=== PATIENT | female | born 1960 | race Caucasian/White ===

== ENCOUNTER → 2016-12-18 | Outpatient (CLI) | payer SELFPAY ==
--- NOTE | 2016-12-18 18:13 | WWHP ---
CHIEF COMPLAINT: The patient is here for her routine gynecologic exam and mammogram. HPI: This is a 56-year-old G3, P3 with an LMP of 2012. The patient is without gynecologic complaints. She was successful in weaning off of her ERT about 1 year ago. She does have occasional hot flashes, but they are very mild and infrequent. PAST MEDICAL HISTORY: Hypothyroidism and chronic hypertension. MEDICATIONS: 1. Synthroid 1 daily. 2. Hydrochlorothiazide 25 mg daily. 3. Metoprolol 50 mg daily. 4. Lsgi-yef-oxhycbj Zantac 1 daily. ALLERGIES: No known drug allergies. 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 SOCIAL HISTORY: She quit smoking as a teenager. She has about 2 to 3 alcoholic drinks per month and denies drug use. She has been since 1980 and watches her 2 grandchildren 1 day a week. REVIEW OF SYSTEMS: She has lost about 4 pounds over the last year. She denies respiratory, cardiac or GI problems; however, certain foods can cause heartburn. PHYSICAL EXAM: Blood pressure 155/80. Height 5 feet 3-3/4 inches. Weight 163 pounds. Temperature 98.7, pulse 80. This is a well-developed, well-nourished white female who is alert and oriented x3, in no acute distress. HEENT is within normal limits. NECK: Supple without mass or thyromegaly. CHEST AND LUNGS: Vascular rate and rhythm. Breasts are without mass or discharge. Axillary is negative for adenopathy. BACK: Negative for CVA tenderness. ABDOMEN: Soft, nontender, without palpable masses. PELVIC: External genitalia reveal mild atrophy without lesions. Vagina reveals minimal atrophy without lesions. There is no evidence of prolapse. Bimanual exam is negative for mass or tenderness. Rectovaginal exam is negative for mass or tenderness and is negative for occult blood. EXTREMITIES: Nontender. IMPRESSION: 1. A 56-year-old menopausal female, status post hysterectomy and bilateral salpingo-oophorectomy for benign reasons with normal gynecologic exam. 2. The patient has successfully weaned off of estrogen replacement therapy with minimal vasomotor symptoms. PLAN: 1. Pap smears have been discontinued. 2. Self-breast examination was discussed. 3. Mammogram will be done today. 4. Osteoporosis prevention was discussed. 5. We have discussed her elevated blood pressure. She will do home blood pressure checks and follow up with Dr. Joy if her blood pressures are elevated. 6. She will return in 1 year.
--- NOTE | 2016-12-19 11:39 | MM ---
Reason for exam: screening (asymptomatic). Last mammogram was performed 1 year and 3 months ago. History: Patient is postmenopausal. Family history of breast cancer in maternal aunt at age 79. Took hormonal contraceptives beginning at age 45. Taking unspecified hormones for 15 years beginning at age 30. Physical Findings: A clinical breast exam by your physician is recommended on an annual basis and results should be correlated with mammographic findings. MG Screening Mammo w CAD Bilateral CC and MLO view(s) were taken. Prior study comparison: September 12, 2015, bilateral MG screening mammo w CAD. August 12, 2014, bilateral MG screening mammo w CAD. There are scattered fibroglandular densities. Finding: There are typically benign round calcifications in both breasts. There is a chronic nodularity in the left breast. There is no discrete abnormality. ASSESSMENT: Benign, BI-RAD 2 RECOMMENDATION: Routine screening mammogram of both breasts in 1 year.
== END | disposition home or self-care (01) ==
LOC: WWCWWP 08:00
PROVIDERS: ATTEND Obstetrics & Gynecology
DX: Z12.31 Encounter for screening mammogram for malignant neoplasm of breast (principal)

== ENCOUNTER → 2016-12-24 | Outpatient (CLI) | payer SELFPAY ==
[2016-12-24 12:10] LABS: CH 29.7; CHCM 33.3; HCT 43.5 % (34.0-46.0); HDW 2.44; HGB 14.1 gm/dL (11.4-16.0); MCHC 32.4 g/dL (31.0-37.0); MCV 89.3 fL (80.0-100.0); Mean Platelet Volume 7.4; RBC 4.87 m/uL (3.80-5.40); WBC 9.5 k/uL (3.8-10.6)
[2016-12-24 12:24] LABS: Anion Gap 12 mmol/L; Blood Urea Nitrogen 19 mg/dL (7-17); Calcium 10.1 mg/dL (8.4-10.2); Carbon Dioxide 31 mmol/L (22-30); Chloride 98 mmol/L (98-107); Glucose 100 mg/dL (74-99); Non-African American GFR(MDRD) >60 (>60 ml/min/1.73 sqM); Potassium 3.8 mmol/L (3.5-5.1); Sodium 141 mmol/L (137-145)
== END | disposition home or self-care (01) ==
LOC: LABWHC1 11:12
PROVIDERS: ATTEND Internal Medicine Interventional Cardiology
DX: I10 Essential (primary) hypertension (principal)
CPT/HCPCS: 36415; 80048; 85027

== ENCOUNTER → 2017-01-03 | Outpatient (CLI) | payer SELFPAY ==
[2017-01-03 14:30] LABS: Anion Gap 12 mmol/L; Blood Urea Nitrogen 22 mg/dL (7-17); Calcium 9.9 mg/dL (8.4-10.2); Carbon Dioxide 27 mmol/L (22-30); Chloride 102 mmol/L (98-107); Glucose 112 mg/dL (74-99); Non-African American GFR(MDRD) >60 (>60 ml/min/1.73 sqM); Sodium 141 mmol/L (137-145)
== END | disposition home or self-care (01) ==
LOC: LABWHC1 14:02
PROVIDERS: ATTEND Internal Medicine Interventional Cardiology
DX: I10 Essential (primary) hypertension (principal)
CPT/HCPCS: 36415; 80048

== ENCOUNTER → 2018-01-07 | Outpatient (CLI) | payer BC ==
--- NOTE | 2018-01-07 11:03 | WWHP ---
[facility] - HISTORY AND PHYSICAL DATE OF DICTATION: 01/07/2018 CHIEF COMPLAINT: The patient is here for her routine gynecologic exam and mammogram. HPI: This is a 57-year-old G3, P3 with an LMP of 2009. The patient is without gynecologic complaints. PAST MEDICAL HISTORY: Hypothyroidism and chronic hypertension. MEDICATIONS: 1. Synthroid 50 mcg daily. 2. Simvastatin 1 daily. 3. Metoprolol 50 mg daily. 4. Amlodipine 1 daily. 5. Zantac mbre-cwr-iykkplj 1 daily p.r.n. 6. Tums p.r.n. ALLERGIES: To RETIN-A. PAST SURGICAL HISTORY: section x3, abdominoplasty 2000, endometrial ablation in 2011, robotic complete hysterectomy with BSO in 2012, colonoscopy in 2008. 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 SOCIAL HISTORY: She smoked briefly in high school, but has quit since then. She has approximately 3 alcohol-containing drinks per month and denies drug use. She has been since 1980 and watches her grandchildren 2 days a week. She also has slight involvement in her family's [employer] and [employer] business. FAMILY HISTORY: Mother had breast cancer at age 82. Father had a CVA and CA and diabetes. Brother had heart disease and 2 maternal aunts had breast cancer. REVIEW OF SYSTEMS: Weight has been stable. She denies respiratory or cardiac problems. GI occasional heartburn. PHYSICAL EXAM: Blood pressure 145/82, height 5 feet 3 inches, weight 165 pounds, BMI 29. Temperature 99.0, pulse 69. This is a well-developed, well-nourished, white female, who is alert and oriented x3, in no acute distress. HEENT is within normal limits. NECK: Supple without mass or thyromegaly. CHEST AND LUNGS: Clear to auscultation. HEART: Regular rate and rhythm. Breasts are without mass or discharge. Axillary exam is negative for adenopathy. Back negative for CVA tenderness. ABDOMEN: Soft, nontender, without palpable masses. PELVIC EXAM: External genitalia reveals mild atrophy without lesions. Vagina reveals mild atrophy without lesions. There is no evidence of prolapse. Bimanual exam is negative for mass or tenderness. Rectovaginal exam is negative for mass or tenderness and is negative for occult blood. EXTREMITIES: Nontender. IMPRESSION: A 57-year-old menopausal female, status post hysterectomy and bilateral salpingo- oophorectomy for benign reasons with normal gynecologic exam. PLAN: 1. Pap smears have been discontinued. 2. Self breast examination was discussed. 3. Screening mammogram will be done today. 4. Osteoporosis prevention was discussed. She has had one bone density test in the past, which was normal per the patient. We will plan on redoing this at age 60. 5. She will return in 1 year. MMODL / IJN: [id number] /
--- NOTE | 2018-01-08 09:09 | MM ---
Reason for exam: screening (asymptomatic). Last mammogram was performed 1 year and 1 month ago. History: Patient is postmenopausal. Family history of breast cancer in maternal aunt at age 79. Took hormonal contraceptives beginning at age 45. Taking unspecified hormones for 15 years beginning at age 30. Physical Findings: A clinical breast exam by your physician is recommended on an annual basis and results should be correlated with mammographic findings. MG Screening Mammo w CAD Bilateral CC and MLO view(s) were taken. Prior study comparison: December 18, 2016, bilateral MG screening mammo w CAD. September 12, 2015, bilateral MG screening mammo w CAD. There are scattered fibroglandular densities. Stable benign calcifications. There is no discrete abnormality. No significant changes when compared with prior studies. ASSESSMENT: Benign, BI-RAD 2 RECOMMENDATION: Routine screening mammogram of both breasts in 1 year.
== END | disposition home or self-care (01) ==
LOC: WWCWWP 09:20
PROVIDERS: ATTEND Obstetrics & Gynecology
DX: Z12.31 Encounter for screening mammogram for malignant neoplasm of breast (principal)
CPT/HCPCS: 77067

== ENCOUNTER → 2019-01-13 | Outpatient (CLI) | payer BC ==
[2019-01-13 11:01] VITALS: BP 150/84; PULSE 67; RESP 18; TEMP 96.2; BMI 27.9
--- NOTE | 2019-01-13 12:08 | P.HPOB ---
History of Present Illness H&P Date: 01/13/19 Chief Complaint: The patient is here for her routine gynecologic exam and mammogram. This is a 58-year-old G3 PIII with an LMP of 2013. The patient states she continues to have hot flashes during the day and night, but they seem to be gradually improving since her surgical menopause. She typically will have 2 or 3 hot flashes at night and one or 2 during the day. She states she sometimes feels like Herb blood pressure is rising when she has a hot flashes and she wonders if this can be a problem. She does experience some vaginal dryness with sexual activity. Review of Systems The patient has lost 2 pounds over the last year. She denies respiratory or cardiac problems. G.I.: occasional heartburn. Past Medical History Past Medical History: Hyperlipidemia, Hypertension, Thyroid Disorder Additional Past Medical History / Comment(s): Hypothyroid. PAST INSURANCE UNDERWRITER SALES HISTORY: She has no history of STDs. T LH and BSO were done for benign bleeding. History of Any Multi-Drug Resistant Organisms: None Reported Past Surgical History: Section (x3), Hysterectomy, Uterine Ablation Additional Past Surgical History / Comment(s): [facility] BSO in 2012. Abdominoplasty 2000. Colonoscopy 2008. Past Psychological History: Panic Disorder Smoking Status: Former smoker Past Alcohol Use History: Occasional (0 to 1 per month) Past Drug Use History: None Reported Additional History: Briefly smoked as a teen. She has been since 1980. 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 - Past Family History Mother Family Medical History: Cancer Additional Family Medical History / Comment(s): Breast cancer in her 80s. The maternal aunt had breast cancer in her 70s. Father Family Medical History: CVA/TIA, Myocardial Infarction ([place]) Brother(s) Additional Family Medical History / Comment(s): Heart disease. Medications and Allergies Home Medications Medication Instructions Recorded Confirmed Type Cyanocobalamin (Vitamin B-12) 1,000 mcg PO DAILY 01/13/19 01/13/19 History [Vitamin B-12] Levothyroxine Sodium [Synthroid] 75 mcg PO DAILY 01/13/19 01/13/19 History Metoprolol Succinate [Toprol Xl] 50 mg PO DAILY 01/13/19 01/13/19 History Multivit with Calcium,Iron,Min 1 each PO DAILY 01/13/19 01/13/19 History [Women's Multivitamin] amLODIPine BESYLATE 5 mg PO DAILY 01/13/19 01/13/19 History Allergies Allergy/AdvReac Type Severity Reaction Status Date / Time nitroglycerin AdvReac Unknown Verified 01/13/19 10:52 Exam Vital Signs Temp Pulse Resp BP Pulse Ox 01/13/19 10:57 96.2 F L 67 18 150/84 97 Intake and Output 01/12/19 01/13/19 01/13/19 22:59 06:59 14:59 Other: Weight 73.936 kg Height 5'4", weight 163 pounds, BMI 28.0. This is a well-developed well-nourished white female who is alert and oriented times 3 in no acute distress. HEENT: Within normal limits. NECK: Supple without mass or thyromegaly. CHEST AND LUNGS: Clear to auscultation. HEART: Regular rate and rhythm. BREASTS: Are without mass or discharge. AXILLARY EXAM: Negative for adenopathy. BACK: Negative for CVA tenderness. ABDOMEN: Soft, nontender, without palpable masses. PELVIC EXAM: External genitalia appears normal with mild atrophy. Vagina appears normal with mild atrophy. There is no evidence of prolapse. Bimanual examination is negative for mass or tenderness. RECTAL EXAM: refused by the patient. EXTREMITIES: Nontender. IMPRESSION: 1. 58-year-old menopausal female status post hysterectomy and bilateral salpingo-oophorectomy for benign reasons with normal gynecologic exam. 2. Menopausal symptoms including vasomotor symptoms, which are improving, and vaginal dryness. 3. Family history of breast cancer in her mother and maternal aunt. PLAN: 1. Pap smears have been discontinued. 2. Self breast awareness was discussed with the patient. 3. Screening mammogram will be done today. 4. Osteoporosis prevention was discussed. I have stressed the importance of adequate calcium, vitamin D and regular exercise. Recommended amounts of calcium and vitamin D were also discussed. 5. I have recommended screening colonoscopy since it is been about 10 years since her last one. She will talk to Dr. Joy about arranging this. 6. We have had a long discussion regarding her menopausal symptoms. Her vasomotor symptoms seem to be improving and are not very severe. Her vaginal dryness probably secondary to gradual genital atrophy related to the menopause. She is interested in having a trial of estrogen vaginal cream. The electronic prescription for Premarin vaginal cream, 1 g intravaginally twice- weekly, will be sent to [facility] pharmacy. 7. I have also recommended that she check her blood pressures at home and also to check them during hot flashes. She will follow-up with Dr. Joy for blood pressure elevations. 8. She was advised to return in one year for her annual well woman exam.
--- NOTE | 2019-01-15 09:11 | MM ---
Reason for exam: screening (asymptomatic). Last mammogram was performed 1 year ago. History: Patient is postmenopausal. Family history of breast cancer in maternal aunt at age 79 and breast cancer in mother at age 80. Took hormonal contraceptives beginning at age 45. Took unspecified hormones for 15 years beginning at age 30. Physical Findings: A clinical breast exam by your physician is recommended on an annual basis and results should be correlated with mammographic findings. MG Screening Mammo w CAD Bilateral CC and MLO view(s) were taken. Prior study comparison: January 07, 2018, bilateral MG screening mammo w CAD. December 18, 2016, bilateral MG screening mammo w CAD. There are scattered fibroglandular densities. No significant changes when compared with prior studies. ASSESSMENT: Negative, BI-RAD 1 RECOMMENDATION: Routine screening mammogram of both breasts in 1 year.
== END ==
LOC: WWCWWP 10:41
PROVIDERS: ATTEND Obstetrics & Gynecology
DX: Z12.31 Encounter for screening mammogram for malignant neoplasm of breast (principal)
CPT/HCPCS: 77067

== ENCOUNTER → 2019-01-13 | Outpatient (CLI) | payer BC ==
[2019-01-13 19:30] LABS: T4, Free (Free Thyroxine) 1.3 ng/dL (0.80-1.80)
== END | disposition home or self-care (01) ==
LOC: LABWHC1 12:09
PROVIDERS: ATTEND Internal Medicine Endocrinology, Diabetes & Metabolism
DX: E03.9 Hypothyroidism, unspecified (principal)
CPT/HCPCS: 36415; 84439; 84443

== ENCOUNTER 2019-04-25 14:54 | Emergency (ER) | payer BC ==
[2019-04-25 15:06] VITALS: RESP 18
[2019-04-25] MEDS ORDERED: SODIUM CHLORIDE 0.9% 1,000 ML IV ONE (15:32)
[2019-04-25] MEDS ORDERED: diphenhydrAMINE 50 MG/ML 1 ML VIAL IVP STA (15:33)
[2019-04-25] MEDS ORDERED: MECLIZINE 12.5 MG TAB PO STA (15:33)
[2019-04-25] MEDS ORDERED: METOCLOPRAMIDE 5 MG/ML 2 ML VIAL IVP STA (15:33)
--- NOTE | 2019-04-25 15:37 | ED ---
Dizziness HPI - General Chief Complaint: Dizziness Stated Complaint: Dizziness/head pressure Time Seen by Provider: 04/25/19 15:08 Source: patient, RN notes reviewed, old records reviewed Mode of arrival: ambulatory Limitations: no limitations - History of Present Illness Initial Comments: Patient is a 58-year-old female who presents emergency department today for evaluation for dizziness and nausea, and complaining of right ear fullness and pain. Patient reports symptoms started suddenly this afternoon. Patient states that she did have an episode of ear fullness. Ago but that diminished. Patient states that she's had history of vertigo in the past. She denies any significant sinus pressure or drainage as this time. Patient states that she does have ringing within her right ear. Patient relates that she's had no recent fevers or chills. Denies any headache head or neck pain. Denies any associated chest pain. - Related Data Home Medications Medication Instructions Recorded Confirmed amLODIPine BESYLATE 5 mg PO HS 01/13/19 04/25/19 Levothyroxine Sodium [Synthroid] 50 mcg PO DAILY 04/25/19 04/25/19 Metoprolol Tartrate [Lopressor] 50 mg PO DAILY 04/25/19 04/25/19 Previous Rx's Medication Instructions Recorded Azithromycin [Zithromax Z-pack] 0 mg PO DIRECTED #6 tab 04/25/19 Meclizine [Antivert] 25 mg PO TID #20 tab 04/25/19 Ondansetron Odt [Zofran Odt] 4 mg PO Q8HR PRN #12 tab 04/25/19 methylPREDNISolone Dose Pack 4 mg PO DIRECTED #21 package 04/25/19 [Medrol Dose Pack] Allergies Allergy/AdvReac Type Severity Reaction Status Date / Time nitroglycerin AdvReac Unknown Verified 04/25/19 16:56 Review of Systems ROS Statement: Those systems with pertinent positive or pertinent negative responses have been documented in the HPI. ROS Other: All systems not noted in ROS Statement are negative. Past Medical History Past Medical History: Hyperlipidemia, Hypertension, Thyroid Disorder Additional Past Medical History / Comment(s): Hypothyroid History of Any Multi-Drug Resistant Organisms: None Reported Past Surgical History: Section, Hysterectomy, Uterine Ablation Additional Past Surgical History / Comment(s): [facility] BSO in 2012. Abdominoplasty 2000. Colonoscopy 2008. Past Psychological History: Panic Disorder Smoking Status: Former smoker Past Alcohol Use History: Occasional Past Drug Use History: None Reported - Past Family History Mother Family Medical History: Cancer Additional Family Medical History / Comment(s): Breast cancer in her 80s. The maternal aunt had breast cancer in her 70s. Father Family Medical History: CVA/TIA, Myocardial Infarction ([place]) Brother(s) Additional Family Medical History / Comment(s): Heart disease. General Exam - General Exam Comments Initial Comments: This is a 50-year-old female. Alert and oriented. No distress. Limitations: no limitations General appearance: alert, in no apparent distress Head exam: Present: atraumatic, normocephalic, normal inspection Eye exam: Present: normal appearance, PERRL, EOMI. Absent: scleral icterus, conjunctival injection, periorbital swelling ENT exam: Present: normal exam, mucous membranes moist. Absent: TM's normal bilaterally (Effusion of her right TM.) Neck exam: Present: normal inspection. Absent: tenderness, meningismus, lymp hadenopathy Respiratory exam: Present: normal lung sounds bilaterally. Absent: respiratory distress, wheezes, rales, rhonchi, stridor Cardiovascular Exam: Present: regular rate, normal rhythm, normal heart sounds. Absent: systolic murmur, diastolic murmur, rubs, gallop, clicks GI/Abdominal exam: Present: soft, normal bowel sounds. Absent: distended, tenderness, guarding, rebound, rigid Extremities exam: Present: normal inspection, full ROM, normal capillary refill. Absent: tenderness, pedal edema, joint swelling, calf tenderness Back exam: Present: normal inspection Neurological exam: Present: alert, oriented X3, CN II-XII intact Psychiatric exam: Present: normal affect, normal mood Skin exam: Present: warm, dry, intact, normal color. Absent: rash Course Vital Signs 04/25/19 15:02 Temperature 98.5 F Pulse Rate 92 Respiratory 18 Rate Blood Pressure 163/85 O2 Sat by Pulse 100 Oximetry Medical Decision Making - Medical Decision Making 50-year-old female presents for his fiance with vertigo like dizziness. Complaining of right ear fullness and pain. Shows colitis denies. Discussed concern for Mnire's disease. Discussed doing a low salt diet. Patient does feel better after receiving meclizine, Reglan and Benadryl. She does have evidence of a right TM effusion. Discussed with the Patient on Medrol Dosepak, and invert and nausea medication. Discussed close follow-up with PCP. - Lab Data Result diagrams: 04/25/19 15:43 04/25/19 15:43 Lab Results 04/25/19 04/25/19 Range/Units 15:43 15:43 WBC 8.9 (3.8-10.6) k/uL RBC 4.78 (3.80-5.40) m/uL Hgb 14.0 (11.4-16.0) gm/dL Hct 42.0 (34.0-46.0) % MCV 87.9 (80.0-100.0) fL MCH 29.3 (25.0-35.0) pg MCHC 33.3 (31.0-37.0) g/dL RDW 12.6 (11.5-15.5) % Plt Count 327 (150-450) k/uL Neutrophils % 53 % Lymphocytes % 35 % Monocytes % 6 % Eosinophils % 3 % Basophils % 1 % Neutrophils # 4.7 (1.3-7.7) k/uL Lymphocytes # 3.1 (1.0-4.8) k/uL Monocytes # 0.5 (0-1.0) k/uL Eosinophils # 0.3 (0-0.7) k/uL Basophils # 0.1 (0-0.2) k/uL Sodium 141 (137-145) mmol/L Potassium 5.2 H (3.5-5.1) mmol/L Chloride 111 H (98-107) mmol/L Carbon Dioxide 22 (22-30) mmol/L Anion Gap 8 mmol/L BUN 14 (7-17) mg/dL Creatinine 0.78 (0.52-1.04) mg/dL Est GFR (CKD-EPI)AfAm >90 (>60 ml/min/1.73 sqM) Est GFR (CKD-EPI)NonAf 84 (>60 ml/min/1.73 sqM) Glucose 150 H (74-99) mg/dL Calcium 9.5 (8.4-10.2) mg/dL Disposition Clinical Impression: Acute effusion of right ear, Tinnitus, right, Vertigo Disposition: HOME SELF-CARE Condition: Good Instructions (If sedation given, give patient instructions): Vertigo (ED) Additional Instructions: Patient advised that close follow-up with primary care doctor. Take the medications as prescribed. Return to the emergency department if any alarming signs or symptoms occur. Discussed that if the repeat seizures. Persist or worsen despite taking any other medications she may start the antibiotic within the next 3 days. Prescriptions: Meclizine [Antivert] 25 mg PO TID #20 tab methylPREDNISolone Dose Pack [Medrol Dose Pack] 4 mg PO DIRECTED #21 package Azithromycin [Zithromax Z-pack] 0 mg PO DIRECTED #6 tab Ondansetron Odt [Zofran Odt] 4 mg PO Q8HR PRN #12 tab PRN Reason: Nausea Is patient prescribed a controlled substance at d/c from ED?: No Referrals: Doris Jyo III, MD [Primary Care Provider] - 1-2 days Alan Bonilla MD [STAFF PHYSICIAN] - 1-2 days Time of Disposition: 17:12
[2019-04-25] MEDS ORDERED: SODIUM CHLORIDE 0.9% 1,000 ML IV SCH (15:45)
[2019-04-25 15:54] LABS: MCH 29.3 pg (25.0-35.0); MCHC 33.3 g/dL (31.0-37.0); MCV 87.9 fL (80.0-100.0); Neutrophils % (A) 53 %; Platelet Count 327 k/uL (150-450); RBC 4.78 m/uL (3.80-5.40); RDW 12.6 % (11.5-15.5); WBC 8.9 k/uL (3.8-10.6)
[2019-04-25 15:55] LABS: Basophils # (A) 0.1 k/uL (0-0.2); Basophils % (A) 1 %; Eosinophils # (A) 0.3 k/uL (0-0.7); Eosinophils % (A) 3 %; Lymphocytes # (A) 3.1 k/uL (1.0-4.8); Lymphocytes % (A) 35 %; Monocytes # (A) 0.5 k/uL (0-1.0); Monocytes % (A) 6 %; Neutrophils # (A) 4.7 k/uL (1.3-7.7)
[2019-04-25 16:07] LABS: African American GFR (CKD) >90 (>60 ml/min/1.73 sqM); Anion Gap 8 mmol/L; Blood Urea Nitrogen 14 mg/dL (7-17); Calcium 9.5 mg/dL (8.4-10.2); Carbon Dioxide 22 mmol/L (22-30); Chloride 111 mmol/L (98-107); Glucose 150 mg/dL (74-99); Sodium 141 mmol/L (137-145)
[2019-04-25 16:16] LABS: Potassium 5.2 mmol/L (3.5-5.1)
[2019-04-25 17:36] VITALS: BP 133/75; PULSE 72; TEMP 98.3
== END 2019-04-25 17:35 | disposition home or self-care (01) ==
LOC: EC 14:54
DX: H93.11 Tinnitus, right ear (principal); H93.8X1 Other specified disorders of right ear; R42 Dizziness and giddiness; I10 Essential (primary) hypertension; E03.9 Hypothyroidism, unspecified; Z87.891 Personal history of nicotine dependence; Z79.890 Hormone replacement therapy; Z79.899 Other long term (current) drug therapy; Z88.8 Allergy status to other drugs, medicaments and biological substances
CPT/HCPCS: 36415; 80048; 85025; 99284; 96374; 96375; 96361 ×2; J1200; J2765

== ENCOUNTER 2019-08-13 23:28 | Emergency (ER) | payer BC ==
[2019-08-13 23:41] VITALS: TEMP 97.8
--- NOTE | 2019-08-13 23:50 | ED ---
Arrhythmia/Palpitations HPI - General Chief Complaint: Arrhythmia/Palpitations Stated Complaint: Palpitations Time Seen by Provider: 08/13/19 23:50 Source: patient Mode of arrival: wheelchair Limitations: no limitations - History of Present Illness Initial Comments: Brooke is a pleasant 58-year-old female with history of hypertension no other cardiac history who presents the emergency department today for evaluation of palpitations. Patient reports that she was resting at home when she noted that her heart seemed to be racing. At the evening it seemed to be getting worse which prompted her to come to ER for evaluation. Patient does note that she was seen by her primary care physician today for routine checkup and was noted to have higher blood pressure than usual and was told she could take one extra amlodipine. Patient does admit some anxiety about having higher blood pressure. She denies any other anxieties. She denies any chest pain or shortness of breath with these palpitations. She reports the palpitations seem to get better when she sitting down resting and worse when she is up moving around. Patient denies any excessive caffeine intake she reports she drinks maybe 2 cups of coffee every morning this is unchanged recently she denies any energy drinks or diet supplements or caffeine pills. Patient denies any history of clotting disorders DVT or PE. She denies any risk factors for DVT or PE including smoking travel or immobilization. She denies any recent illness fevers chills nausea or vomiting. - Related Data Home Medications Medication Instructions Recorded Confirmed amLODIPine BESYLATE 5 mg PO HS 01/13/19 04/25/19 Levothyroxine Sodium [Synthroid] 50 mcg PO DAILY 04/25/19 04/25/19 Metoprolol Tartrate [Lopressor] 50 mg PO DAILY 04/25/19 04/25/19 Previous Rx's Medication Instructions Recorded Azithromycin [Zithromax Z-pack] 0 mg PO DIRECTED #6 tab 04/25/19 Meclizine [Antivert] 25 mg PO TID #20 tab 04/25/19 Ondansetron Odt [Zofran Odt] 4 mg PO Q8HR PRN #12 tab 04/25/19 methylPREDNISolone Dose Pack 4 mg PO DIRECTED #21 package 04/25/19 [Medrol Dose Pack] Allergies Allergy/AdvReac Type Severity Reaction Status Date / Time nitroglycerin AdvReac Unknown Verified 08/13/19 23:41 Review of Systems ROS Statement: Those systems with pertinent positive or pertinent negative responses have been documented in the HPI. ROS Other: All systems not noted in ROS Statement are negative. Past Medical History Past Medical History: Hyperlipidemia, Hypertension, Thyroid Disorder Additional Past Medical History / Comment(s): Hypothyroid History of Any Multi-Drug Resistant Organisms: None Reported Past Surgical History: Section, Hysterectomy, Uterine Ablation Additional Past Surgical History / Comment(s): TLH BSO in 2012. Abdominoplasty 2000. Colonoscopy 2008. Past Psychological History: Panic Disorder Smoking Status: Former smoker Past Alcohol Use History: Occasional Past Drug Use History: None Reported - Past Family History Mother Family Medical History: Cancer Additional Family Medical History / Comment(s): Breast cancer in her 80s. The maternal aunt had breast cancer in her 70s. Father Family Medical History: CVA/TIA, Myocardial Infarction ([place]) Brother(s) Additional Family Medical History / Comment(s): Heart disease. General Exam - General Exam Comments Initial Comments: Physical Exam GENERAL: Patient is well-developed and well-nourished. Patient is nontoxic and well- hydrated and is in no distress. HENT: Normocephalic, Atraumatic. EYES: PERRL, EOMI PULMONARY: Unlabored respirations. No audible rales rhonchi or wheezing was noted. CARDIOVASCULAR: There is a regular rate and rhythm without any murmurs gallops or rubs. ABDOMEN: Soft and nontender with normal bowel sounds. SKIN: Skin is clear with no lesions or rashes and otherwise unremarkable. : Deferred NEUROLOGIC: Patient is alert and oriented x3. Moving all extremities spontaneously MUSCULOSKELETAL: Normal extremities with adequate strength and full range of motion. No lower extremity swelling or edema. No calf tenderness. PSYCHIATRIC: Normal psychiatric evaluation. Limitations: no limitations Course Vital Signs 08/13/19 08/13/19 08/14/19 23:39 23:53 01:19 Temperature 97.8 F Pulse Rate 131 H 115 H 99 Respiratory 18 22 15 Rate Blood Pressure 178/81 168/85 144/79 O2 Sat by Pulse 100 100 98 Oximetry 08/14/19 02:36 Temperature Pulse Rate 88 Respiratory 16 Rate Blood Pressure 152/81 O2 Sat by Pulse 98 Oximetry EKG Findings - EKG Comments: EKG Findings:: EKG was obtained due to complaint of palpitations. EKG was obtained at 2343, rate is 106 rhythm sinus tachycardia there is normal axis, normal intervals, DE 174, curious 82, QTc is 454 there is no acute ST elevations or depressions or evidence of acute ischemia or infarction. Medical Decision Making - Medical Decision Making The patient was seen and evaluated history is obtained from the patient History and physical exam are relatively unremarkable cardiac workup was initiated patient remained chest pain-free. She received IV fluids and a single dose of Lopressor. Her tachycardia and symptoms resolved Labs were unremarkable results were discussed with the patient who is much more comfortable now and is comfortable with plan for discharge home and outpatient follow-up. All questions pertaining care were answered return parameters were discussed patient was discharged home in stable condition. - Lab Data Result diagrams: 08/13/19 23:55 08/13/19 23:55 Lab Results 08/13/19 08/13/19 08/13/19 Range/Units 23:55 23:55 23:55 WBC 11.3 H (3.8-10.6) k/uL RBC 4.57 (3.80-5.40) m/uL Hgb 13.9 (11.4-16.0) gm/dL Hct 40.2 (34.0-46.0) % MCV 88.1 (80.0-100.0) fL MCH 30.5 (25.0-35.0) pg MCHC 34.6 (31.0-37.0) g/dL RDW 12.1 (11.5-15.5) % Plt Count 360 (150-450) k/uL Neutrophils % 54 % Lymphocytes % 33 % Monocytes % 7 % Eosinophils % 3 % Basophils % 1 % Neutrophils # 6.1 (1.3-7.7) k/uL Lymphocytes # 3.7 (1.0-4.8) k/uL Monocytes # 0.8 (0-1.0) k/uL Eosinophils # 0.3 (0-0.7) k/uL Basophils # 0.1 (0-0.2) k/uL PT 10.1 (9.0-12.0) sec INR 0.9 (<1.2) APTT 25.1 (22.0-30.0) sec D-Dimer (<0.60) mg/L FEU Sodium 141 (137-145) mmol/L Potassium 3.4 L (3.5-5.1) mmol/L Chloride 104 (98-107) mmol/L Carbon Dioxide 25 (22-30) mmol/L Anion Gap 12 mmol/L BUN 15 (7-17) mg/dL Creatinine 0.89 (0.52-1.04) mg/dL Est GFR (CKD-EPI)AfAm 83 (>60 ml/min/1.73 sqM) Est GFR (CKD-EPI)NonAf 72 (>60 ml/min/1.73 sqM) Glucose 196 H (74-99) mg/dL Calcium 10.0 (8.4-10.2) mg/dL Magnesium 2.1 (1.6-2.3) mg/dL Total Bilirubin 0.4 (0.2-1.3) mg/dL AST 25 (14-36) U/L ALT 24 (9-52) U/L Alkaline Phosphatase 101 (38-126) U/L Troponin I (0.000-0.034) ng/mL Total Protein 7.9 (6.3-8.2) g/dL Albumin 4.5 (3.5-5.0) g/dL TSH 2.000 (0.465-4.680) mIU/L 08/13/19 08/13/19 Range/Units 23:55 23:55 WBC (3.8-10.6) k/uL RBC (3.80-5.40) m/uL Hgb (11.4-16.0) gm/dL Hct (34.0-46.0) % MCV (80.0-100.0) fL MCH (25.0-35.0) pg MCHC (31.0-37.0) g/dL RDW (11.5-15.5) % Plt Count (150-450) k/uL Neutrophils % % Lymphocytes % % Monocytes % % Eosinophils % % Basophils % % Neutrophils # (1.3-7.7) k/uL Lymphocytes # (1.0-4.8) k/uL Monocytes # (0-1.0) k/uL Eosinophils # (0-0.7) k/uL Basophils # (0-0.2) k/uL PT (9.0-12.0) sec INR (<1.2) APTT (22.0-30.0) sec D-Dimer 0.25 (<0.60) mg/L FEU Sodium (137-145) mmol/L Potassium (3.5-5.1) mmol/L Chloride (98-107) mmol/L Carbon Dioxide (22-30) mmol/L Anion Gap mmol/L BUN (7-17) mg/dL Creatinine (0.52-1.04) mg/dL Est GFR (CKD-EPI)AfAm (>60 ml/min/1.73 sqM) Est GFR (CKD-EPI)NonAf (>60 ml/min/1.73 sqM) Glucose (74-99) mg/dL Calcium (8.4-10.2) mg/dL Magnesium (1.6-2.3) mg/dL Total Bilirubin (0.2-1.3) mg/dL AST (14-36) U/L ALT (9-52) U/L Alkaline Phosphatase (38-126) U/L Troponin I <0.012 (0.000-0.034) ng/mL Total Protein (6.3-8.2) g/dL Albumin (3.5-5.0) g/dL TSH (0.465-4.680) mIU/L Disposition Clinical Impression: Palpitations Disposition: HOME SELF-CARE Condition: Stable Instructions (If sedation given, give patient instructions): Heart Palpitations (ED) Is patient prescribed a controlled substance at d/c from ED?: No Referrals: Doris Joy III, MD [Primary Care Provider] - 1-2 days
--- NOTE | 2019-08-14 00:11 | XR ---
EXAMINATION TYPE: XR chest 2V DATE OF EXAM: 08/14/2019 COMPARISON: 06/19/2014 HISTORY: Irregular heart rate TECHNIQUE: Frontal and lateral views of the chest are obtained. FINDINGS: Heart and mediastinum are normal. Lungs are clear. Diaphragm is normal. Bony thorax appear s normal. IMPRESSION: Normal chest. No change.
[2019-08-14 00:34] LABS: Basophils # (A) 0.1 k/uL (0-0.2); Basophils % (A) 1 %; Eosinophils # (A) 0.3 k/uL (0-0.7); Eosinophils % (A) 3 %; HCT 40.2 % (34.0-46.0); HGB 13.9 gm/dL (11.4-16.0); Lymphocytes # (A) 3.7 k/uL (1.0-4.8); Lymphocytes % (A) 33 %; MCH 30.5 pg (25.0-35.0); MCHC 34.6 g/dL (31.0-37.0); MCV 88.1 fL (80.0-100.0); Mean Platelet Volume 6.6; Monocytes # (A) 0.8 k/uL (0-1.0); Monocytes % (A) 7 %; Neutrophils # (A) 6.1 k/uL (1.3-7.7); Neutrophils % (A) 54 %; Platelet Count 360 k/uL (150-450); RBC 4.57 m/uL (3.80-5.40); RDW 12.1 % (11.5-15.5); WBC 11.3 k/uL (3.8-10.6)
[2019-08-14 00:47] LABS: INR 0.9 (<1.2); Partial Thromboplastin Time 25.1 sec (22.0-30.0); Prothrombin Time 10.1 sec (9.0-12.0)
[2019-08-14 01:00] LABS: Albumin 4.5 g/dL (3.5-5.0); Magnesium 2.1 mg/dL (1.6-2.3); Potassium 3.4 mmol/L (3.5-5.1); Total Bilirubin 0.4 mg/dL (0.2-1.3); Total Protein 7.9 g/dL (6.3-8.2)
[2019-08-14] MEDS ORDERED: SODIUM CHLORIDE 0.9% 1,000 ML IV ONE (01:21)
[2019-08-14] MEDS ORDERED: METOPROLOL TARTRATE 50 MG TAB PO STA (01:21)
[2019-08-14 02:37] VITALS: BP 152/81; PULSE 88; RESP 16
== END 2019-08-14 03:19 | disposition home or self-care (01) ==
LOC: EC 23:28
DX: R00.2 Palpitations (principal); I10 Essential (primary) hypertension; E03.9 Hypothyroidism, unspecified; E78.5 Hyperlipidemia, unspecified; F41.9 Anxiety disorder, unspecified; Z87.891 Personal history of nicotine dependence; Z88.8 Allergy status to other drugs, medicaments and biological substances; Z82.49 Family history of ischemic heart disease and other diseases of the circulatory system
CPT/HCPCS: 36415; 71046; 80053; 83735; 84443; 84484; 85025; 85379; 85610; 85730; 93005; 96360; 99285

== ENCOUNTER → 2019-08-23 | Outpatient (CLI) | payer BC ==
--- NOTE | 2019-08-23 08:35 | US ---
EXAMINATION TYPE: US abdomen complete DATE OF EXAM: 08/23/2019 COMPARISON: Ultrasound dated 12/24/2011 CLINICAL HISTORY: R10.11 RUQ Abd Pain. RUQ pain. Burping. NPO. EXAM MEASUREMENTS: Liver Length: 16.6 cm Gallbladder Wall: 0.2 cm CBD: 0.5 cm Spleen: 10.0 cm Right Kidney: 9.8 x 5.0 x 3.3 cm Left Kidney: 9.7 x 4.2 x 5.1 cm Pancreas: Suboptimal visualization due to overlying bowel gas. Tail not visualized. Liver: wnl Gallbladder: wnl Evidence for sonographic Moncada's sign: neg CBD: wnl Spleen: wnl Right Kidney: wnl Left Kidney: wnl Upper IVC: wnl Abd Aorta: Mid portion obscured by overlying bowel gas The liver is homogenous. The intrahepatic portion of the IVC and proximal abdominal aorta are within normal limits. There is no evidence of cholelithiasis. Common bile duct is unremarkable. The visu alized portions of the pancreas are homogenous. The spleen is unremarkable. Kidneys are symmetric a nd free of hydronephrosis. No renal lesions are seen. IMPRESSION: No sonographic evidence of cholelithiasis nor acute cholecystitis. Given the patient's sy mptoms HIDA scan with CCK could evaluate for biliary dyskinesia or chronic cholecystitis.
== END | disposition home or self-care (01) ==
LOC: RADUSWWP 07:39
PROVIDERS: ATTEND Family Medicine
DX: R10.11 Right upper quadrant pain (principal)
CPT/HCPCS: 76700

== ENCOUNTER → 2020-06-15 | Outpatient (CLI) | payer BC ==
--- NOTE | 2020-06-19 11:37 | MM ---
Reason for exam: screening (asymptomatic). Last mammogram was performed 1 year and 5 months ago. History: Patient is postmenopausal. Family history of breast cancer in maternal aunt at age 79 and breast cancer in mother at age 80. Took hormonal contraceptives beginning at age 45. Took unspecified hormones for 15 years beginning at age 30. Physical Findings: A clinical breast exam by your physician is recommended on an annual basis and results should be correlated with mammographic findings. MG 3D Screening Mammo W/Cad Bilateral CC and MLO view(s) were taken. Prior study comparison: January 13, 2019, bilateral MG screening mammo w CAD. January 07, 2018, bilateral MG screening mammo w CAD. The breast tissue is heterogeneously dense. This may lower the sensitivity of mammography. Benign appearing bilateral calcifications. No significant changes when compared with prior studies. ASSESSMENT: Benign, BI-RAD 2 RECOMMENDATION: Routine screening mammogram of both breasts in 1 year.
== END | disposition home or self-care (01) ==
LOC: RADMAMWWP 10:59
PROVIDERS: ATTEND Family Medicine
DX: Z12.31 Encounter for screening mammogram for malignant neoplasm of breast (principal)
CPT/HCPCS: 77063; 77067

== ENCOUNTER 2020-09-07 08:26 | Observation (INO) | payer BC ==
[2020-09-07] MEDS ORDERED: METOPROLOL TARTRATE 50 MG TAB PO STA (09:03)
[2020-09-07] MEDS ORDERED: ASPIRIN 81 MG PO STA (09:03)
--- NOTE | 2020-09-07 09:06 | ED ---
General Adult HPI - General Chief complaint: Chest Pain Stated complaint: Chest pain Time Seen by Provider: 09/07/20 08:35 Source: patient, family, RN notes reviewed Mode of arrival: wheelchair Limitations: no limitations - History of Present Illness Initial comments: Patient is a pleasant 59-year-old female presenting to the emergency Department with complaints of chest discomfort. Onset of symptoms was the past couple of days. Symptoms have been waxing and waning. Patient has an ache in the lower sternal region. Occasional discomfort radiates towards the back. Discomfort becomes moderate at times however currently is mild. No associated dyspnea. Patient has had some sweating and nausea. Patient has had similar symptoms previously however unclear why. No leg pain or leg swelling. Blood pressure has been high the past couple of days and patient has several readings of the 170s over 90s. - Related Data Home Medications Medication Instructions Recorded Confirmed amLODIPine BESYLATE 5 mg PO HS 01/13/19 09/07/20 Levothyroxine Sodium [Synthroid] 50 mcg PO DAILY 04/25/19 09/07/20 Metoprolol Tartrate [Lopressor] 50 mg PO DAILY 04/25/19 09/07/20 Ascorbic Acid [Vitamin C] 1,000 mg PO DAILY 09/07/20 09/07/20 Cholecalciferol [Vitamin D3 (25 1,000 unit PO DAILY 09/07/20 09/07/20 Mcg = 1000 Iu)] Cyanocobalamin (Vitamin B-12) 5,000 mcg PO DAILY 09/07/20 09/07/20 [Vitamin B-12] Elderberry Fruit and Flower [Black 1 cap PO DAILY 09/07/20 09/07/20 Elderberry 575 mg Cap] Losartan Potassium 100 mg PO DAILY 09/07/20 09/07/20 Metoprolol Tartrate [Lopressor] 25 mg PO HS 09/07/20 09/07/20 Rosuvastatin Calcium 5 mg PO HS 09/07/20 09/07/20 Zinc 50 mg PO DAILY 09/07/20 09/07/20 Allergies Allergy/AdvReac Type Severity Reaction Status Date / Time nitroglycerin AdvReac Unknown Verified 09/07/20 09:56 Review of Systems ROS Statement: Those systems with pertinent positive or pertinent negative responses have been documented in the HPI. ROS Other: All systems not noted in ROS Statement are negative. Constitutional: Denies: fever Eyes: Denies: eye pain ENT: Denies: ear pain Respiratory: Denies: cough Cardiovascular: Reports: as per HPI, chest pain Endocrine: Denies: fatigue Gastrointestinal: Denies: abdominal pain Genitourinary: Denies: dysuria Musculoskeletal: Reports: as per HPI Skin: Denies: rash Neurological: Denies: weakness Past Medical History Past Medical History: Hyperlipidemia, Hypertension, Thyroid Disorder Additional Past Medical History / Comment(s): Hypothyroid History of Any Multi-Drug Resistant Organisms: None Reported Past Surgical History: Section, Hysterectomy, Uterine Ablation Additional Past Surgical History / Comment(s): TLH BSO in 2012. Abdominoplasty 2000. Colonoscopy 2008. Past Psychological History: Panic Disorder Smoking Status: Never smoker Past Alcohol Use History: Occasional Past Drug Use History: None Reported - Past Family History Mother Family Medical History: Cancer Additional Family Medical History / Comment(s): Breast cancer in her 80s. The maternal aunt had breast cancer in her 70s. Father Family Medical History: CVA/TIA, Myocardial Infarction ([place]) Brother(s) Additional Family Medical History / Comment(s): Heart disease. General Exam Limitations: no limitations General appearance: alert, in no apparent distress Head exam: Present: normocephalic Eye exam: Present: normal appearance Neck exam: Present: normal inspection Respiratory exam: Present: normal lung sounds bilaterally. Absent: chest wall tenderness Cardiovascular Exam: Present: regular rate, normal rhythm Expanded Peripheral pulses: 2+: Radial (R), Radial (L), Dorsalis Pedis (R), Dorsalis Pedis (L) GI/Abdominal exam: Present: soft. Absent: tenderness Extremities exam: Present: normal inspection. Absent: pedal edema, calf tenderness Neurological exam: Present: alert Psychiatric exam: Present: normal affect, normal mood Skin exam: Present: normal color Course Vital Signs 09/07/20 09/07/20 08:31 09:27 Temperature 97.7 F Pulse Rate 98 100 Respiratory 18 18 Rate Blood Pressure 172/79 141/87 O2 Sat by Pulse 100 100 Oximetry EKG Findings - EKG Comments: EKG Findings:: Sinus tachycardia 125. AK 144. QRS 72. QT 322. QTC 464. Normal axis. Normal QRS. No acute ST change. Medical Decision Making - Medical Decision Making Patient reevaluated and resting comfortably in bed. Patient and family updated on results and plan. Case was discussed in detail with Dr. motta, who will admit covering for Dr. Salgado - Lab Data Result diagrams: 09/07/20 09:09 09/07/20 09:09 Lab Results 09/07/20 09/07/20 09/07/20 Range/Units 09:09 09:09 09:09 WBC 11.4 H (3.8-10.6) k/uL RBC 5.23 (3.80-5.40) m/uL Hgb 15.9 (11.4-16.0) gm/dL Hct 48.0 H (34.0-46.0) % MCV 91.6 (80.0-100.0) fL MCH 30.3 (25.0-35.0) pg MCHC 33.1 (31.0-37.0) g/dL RDW 12.1 (11.5-15.5) % Plt Count 399 (150-450) k/uL Neutrophils % 68 % Lymphocytes % 24 % Monocytes % 5 % Eosinophils % 1 % Basophils % 1 % Neutrophils # 7.8 H (1.3-7.7) k/uL Lymphocytes # 2.7 (1.0-4.8) k/uL Monocytes # 0.6 (0-1.0) k/uL Eosinophils # 0.1 (0-0.7) k/uL Basophils # 0.1 (0-0.2) k/uL PT 10.1 (9.0-12.0) sec INR 1.0 (<1.2) APTT 23.7 (22.0-30.0) sec D-Dimer 0.19 (<0.60) mg/L FEU Sodium 139 (137-145) mmol/L Potassium 4.3 (3.5-5.1) mmol/L Chloride 103 (98-107) mmol/L Carbon Dioxide 23 (22-30) mmol/L Anion Gap 13 mmol/L BUN 16 (7-17) mg/dL Creatinine 0.87 (0.52-1.04) mg/dL Est GFR (CKD-EPI)AfAm 85 (>60 ml/min/1.73 sqM) Est GFR (CKD-EPI)NonAf 73 (>60 ml/min/1.73 sqM) Glucose 159 H (74-99) mg/dL Calcium 10.4 H (8.4-10.2) mg/dL Magnesium 2.1 (1.6-2.3) mg/dL Total Bilirubin 1.0 (0.2-1.3) mg/dL AST 34 (14-36) U/L ALT 41 H (4-34) U/L Alkaline Phosphatase 124 (38-126) U/L Troponin I (0.000-0.034) ng/mL Total Protein 8.9 H (6.3-8.2) g/dL Albumin 5.1 H (3.5-5.0) g/dL Amylase 64 (30-110) U/L Lipase 107 (23-300) U/L 09/07/20 Range/Units 09:09 WBC (3.8-10.6) k/uL RBC (3.80-5.40) m/uL Hgb (11.4-16.0) gm/dL Hct (34.0-46.0) % MCV (80.0-100.0) fL MCH (25.0-35.0) pg MCHC (31.0-37.0) g/dL RDW (11.5-15.5) % Plt Count (150-450) k/uL Neutrophils % % Lymphocytes % % Monocytes % % Eosinophils % % Basophils % % Neutrophils # (1.3-7.7) k/uL Lymphocytes # (1.0-4.8) k/uL Monocytes # (0-1.0) k/uL Eosinophils # (0-0.7) k/uL Basophils # (0-0.2) k/uL PT (9.0-12.0) sec INR (<1.2) APTT (22.0-30.0) sec D-Dimer (<0.60) mg/L FEU Sodium (137-145) mmol/L Potassium (3.5-5.1) mmol/L Chloride (98-107) mmol/L Carbon Dioxide (22-30) mmol/L Anion Gap mmol/L BUN (7-17) mg/dL Creatinine (0.52-1.04) mg/dL Est GFR (CKD-EPI)AfAm (>60 ml/min/1.73 sqM) Est GFR (CKD-EPI)NonAf (>60 ml/min/1.73 sqM) Glucose (74-99) mg/dL Calcium (8.4-10.2) mg/dL Magnesium (1.6-2.3) mg/dL Total Bilirubin (0.2-1.3) mg/dL AST (14-36) U/L ALT (4-34) U/L Alkaline Phosphatase (38-126) U/L Troponin I <0.012 (0.000-0.034) ng/mL Total Protein (6.3-8.2) g/dL Albumin (3.5-5.0) g/dL Amylase (30-110) U/L Lipase (23-300) U/L - Radiology Data Radiology results: image reviewed (Chest x-ray shows no acute) Disposition Clinical Impression: Chest pain Disposition: ADMITTED IP TO THIS HOSP Is patient prescribed a controlled substance at d/c from ED?: No Referrals: Guilherme Salgado MD [Primary Care Provider] - 1-2 days Decision Time: 10:33
[2020-09-07 09:28] LABS: Basophils # (A) 0.1 k/uL (0-0.2); Basophils % (A) 1 %; Eosinophils # (A) 0.1 k/uL (0-0.7); Eosinophils % (A) 1 %; HGB 15.9 gm/dL (11.4-16.0); Lymphocytes # (A) 2.7 k/uL (1.0-4.8); Lymphocytes % (A) 24 %; MCH 30.3 pg (25.0-35.0); MCHC 33.1 g/dL (31.0-37.0); MCV 91.6 fL (80.0-100.0); Mean Platelet Volume 7.7; Monocytes # (A) 0.6 k/uL (0-1.0); Monocytes % (A) 5 %; Neutrophils # (A) 7.8 k/uL (1.3-7.7); Neutrophils % (A) 68 %; Platelet Count 399 k/uL (150-450); RBC 5.23 m/uL (3.80-5.40); RDW 12.1 % (11.5-15.5); WBC 11.4 k/uL (3.8-10.6)
--- NOTE | 2020-09-07 09:32 | XR ---
EXAMINATION TYPE: XR chest 2V DATE OF EXAM: 09/07/2020 CLINICAL HISTORY: Chest Pain. TECHNIQUE: Frontal and lateral view of the chest. COMPARISON: 08/14/2019 chest radiograph FINDINGS: The cardiomediastinal silhouette is within normal limits for size. Pulmonary vasculature i s normal. There is no focal air space opacity, pleural effusion, or pneumothorax seen. The osseous st ructures are intact. IMPRESSION: No acute cardiopulmonary process.
[2020-09-07 09:37] LABS: Albumin 5.1 g/dL (3.5-5.0); Calcium 10.4 mg/dL (8.4-10.2); Magnesium 2.1 mg/dL (1.6-2.3); Potassium 4.3 mmol/L (3.5-5.1); Total Protein 8.9 g/dL (6.3-8.2)
[2020-09-07 09:47] LABS: D-Dimer 0.19 mg/L FEU (<0.60); Partial Thromboplastin Time 23.7 sec (22.0-30.0); Prothrombin Time 10.1 sec (9.0-12.0)
[2020-09-07] MEDS ORDERED: AMINOPHYLLINE 500 MG/20 ML VIAL IV PRN (13:40)
[2020-09-07] MEDS ORDERED: REGADENOSON 0.4 MG/5 ML SYRINGE IV ONE (13:40)
[2020-09-07] MEDS ORDERED: CAFFEINE CITRATE 60 MG/3 ML VIAL IV PRN (13:40)
--- NOTE | 2020-09-07 14:03 | P.CRDCN ---
History of Present Illness History of present illness: CHIEF COMPLAINT: Chest pain HISTORY OF PRESENT ILLNESS: This is a 59-year old female with a past medical history significant for hypertension, hyperlipidemia, hypothyroidism, and anxiety. Patient follows in the office with Dr. Martini. We have been asked to see the patient in consultation for chest discomfort. Patient states a couple days ago she was cooking dinner and started feeling flushed all over her body. She reports nausea. She reports muscle weakness in her legs. She states her left arm felt weak but denies any numbness and tingling. Patient reports chest discomfort with exertion it goes into her mid back and between her shoulder blades. The pain also radiates to her right upper quadrant of her abdomen. There is no pain with palpation however. She describes the pain as a sharp pain. The pain is worse with movement. No increased pain with deep inspiration. She states she checked her blood pressure and it was 170s over 90s. She spoke with one of the cardiologists who was on-call and advised her to take an extra dose of her metoprolol and advised her to come to the emergency room if her symptoms persisted. Patient did not come to the emergency room at that time. She notified her brake assembler the following morning and was prescribed amlodipine 5 mg daily. It is also noted that the patient was started on Rosuvastatin on 09/01/2020 at a follow-up visit with Dr. Martini's nurse practitioner. Patient reports a family history of heart disease and states her dad had 2 heart attacks and 2 strokes. He at 68 years old. She states her dad had 7 siblings who all from heart attacks or strokes. DIAGNOSTICS: EKG reveals sinus tachycardia without signs of acute ischemia Chest xray no acute cardiopulmonary process Laboratory data: W BC 11.4. Hemoglobin 15.9. Platelet count 399. D-dimer 0.19. Sodium 139. Potassium 4.3. BUN 16. Creatinine 0.87. Magnesium 2.1. Troponin negative 2 Current home cardiac medications include Rosuvastatin 5mg daily, metoprolol 50 mg in the morning and 25 mg at night, losartan 100 mg daily, and Norvasc 5 mg daily REVIEW OF SYSTEMS: At the time of my exam: CONSTITUTIONAL: Denies fever or chills. HEENT: Denies blurred vision, vision changes, or eye pain. Denies hemoptysis CARDIOVASCULAR: Reports chest discomfort. Denies orthopnea, PND or palpitations RESPIRATORY: No shortness of breath. GASTROINTESTINAL: Denies abdominal pain. Denies nausea or vomiting. HEMATOLOGIC: Denies bleeding disorders. GENITOURINARY: Denies any blood in urine. SKIN: Denies pruitis. Denies rash. PHYSICAL EXAM: VITAL SIGNS: Reviewed. GENERAL: Well-developed in no acute distress. HEENT: Head is normocephalic. Pupils are equal, round. Sclerae anicteric. Mucous membranes of the mouth are moist. Neck supple. No JVD or thyromegaly LUNGS: Respirations even and unlabored. Lungs essentially clear to auscultation bilaterally. HEART: Regular rate and rhythm. S1 and S2 heard. ABDOMEN: Soft. Nondistended. Nontender. EXTREMITIES: Normal range of motion. No clubbing or cyanosis. Peripheral pulses intact. No lower extremity edema NEUROLOGIC: Awake and alert. Oriented x 3. ASSESSMENT: Chest pain, troponin negative 2 Myalgia, may be secondary to Rosuvastatin prescribed on 09/01/2020 Hypertension Hyperlipidemia Hypothyroidism Anxiety PLAN: An acute coronary event has been ruled out Resume home cardiac medications Hold statin Obtain 2-D echo to assess cardiac structure and function Obtain ultrasound to evaluate for gallbladder etiology NPO at midnight. Patient to undergo Lexiscan stress test tomorrow morning Nurse practitioner note has been reviewed by physician. Signing provider agrees with the documented findings, assessment, and plan of care. Past Medical History Past Medical History: Hyperlipidemia, Hypertension, Thyroid Disorder Additional Past Medical History / Comment(s): Hypothyroid, UTIs, anemia before hysterectomy. History of Any Multi-Drug Resistant Organisms: None Reported Past Surgical History: Section, Hysterectomy, Uterine Ablation Additional Past Surgical History / Comment(s): CSection x3, abdominoplasty Past Anesthesia/Blood Transfusion Reactions: No Reported Reaction Past Psychological History: Anxiety Additional Psychological History / Comment(s): Pt resides with her spouse. She is independent. Smoking Status: Never smoker Past Alcohol Use History: Occasional Past Drug Use History: None Reported - Past Family History Mother Family Medical History: AFIB, Cancer Additional Family Medical History / Comment(s): Breast cancer in her 80s. Hypokalemia. Father Family Medical History: CVA/TIA, Myocardial Infarction ([place]) Additional Family Medical History / Comment(s): Father had his first FL in his 50s and his second FL in his early 60s. He had 4 vessel CABG Brother(s) Additional Family Medical History / Comment(s): Heart disease. Medications and Allergies Home Medications Medication Instructions Recorded Confirmed Type amLODIPine BESYLATE 5 mg PO HS 01/13/19 09/07/20 History Levothyroxine Sodium [Synthroid] 50 mcg PO DAILY 04/25/19 09/07/20 History Metoprolol Tartrate [Lopressor] 50 mg PO DAILY 04/25/19 09/07/20 History Ascorbic Acid [Vitamin C] 1,000 mg PO DAILY 09/07/20 09/07/20 History Cholecalciferol [Vitamin D3 (25 1,000 unit PO DAILY 09/07/20 09/07/20 History Mcg = 1000 Iu)] Cyanocobalamin (Vitamin B-12) 5,000 mcg PO DAILY 09/07/20 09/07/20 History [Vitamin B-12] Elderberry Fruit and Flower [Black 1 cap PO DAILY 09/07/20 09/07/20 History Elderberry 575 mg Cap] Losartan Potassium 100 mg PO DAILY 09/07/20 09/07/20 History Metoprolol Tartrate [Lopressor] 25 mg PO HS 09/07/20 09/07/20 History Rosuvastatin Calcium 5 mg PO HS 09/07/20 09/07/20 History Zinc 50 mg PO DAILY 09/07/20 09/07/20 History Allergies Allergy/AdvReac Type Severity Reaction Status Date / Time nitroglycerin AdvReac Unknown Verified 09/07/20 09:56 Physical Exam Vitals: Vital Signs Temp Pulse Resp BP Pulse Ox 09/07/20 09:27 100 18 141/87 100 09/07/20 08:31 97.7 F 98 18 172/79 100 Intake and Output 09/06/20 09/07/20 09/07/20 22:59 06:59 14:59 Other: Weight 74.843 kg Results 09/07/20 09:09 09/07/20 09:09 Cardiac Enzymes 09/07/20 09/07/20 Range/Units 09:09 09:09 AST 34 (14-36) U/L Troponin I <0.012 (0.000-0.034) ng/mL Coagulation 09/07/20 Range/Units 09:09 PT 10.1 (9.0-12.0) sec APTT 23.7 (22.0-30.0) sec CBC 09/07/20 Range/Units 09:09 WBC 11.4 H (3.8-10.6) k/uL RBC 5.23 (3.80-5.40) m/uL Hgb 15.9 (11.4-16.0) gm/dL Hct 48.0 H (34.0-46.0) % Plt Count 399 (150-450) k/uL Comprehensive Metabolic Panel 09/07/20 Range/Units 09:09 Sodium 139 (137-145) mmol/L Potassium 4.3 (3.5-5.1) mmol/L Chloride 103 (98-107) mmol/L Carbon Dioxide 23 (22-30) mmol/L BUN 16 (7-17) mg/dL Creatinine 0.87 (0.52-1.04) mg/dL Glucose 159 H (74-99) mg/dL Calcium 10.4 H (8.4-10.2) mg/dL AST 34 (14-36) U/L ALT 41 H (4-34) U/L Alkaline Phosphatase 124 (38-126) U/L Total Protein 8.9 H (6.3-8.2) g/dL Albumin 5.1 H (3.5-5.0) g/dL Current Medications Generic Name Dose Route Start Last Admin Trade Name Freq PRN Reason Stop Dose Admin Aspirin 325 mg 09/08/20 09:00 Aspirin 325 Mg Tab PO DAILY GILES Intake and Output 09/06/20 09/07/20 09/07/20 22:59 06:59 14:59 Other: Weight 74.843 kg Patient Weight 09/08/20 06:59 Weight 74.843 kg 09/07/20 09:09 09/07/20 09:09
--- NOTE | 2020-09-07 16:30 | US ---
EXAMINATION TYPE: US abdomen limited DATE OF EXAM: 09/07/2020 COMPARISON: Ultrasound abdomen 08/23/2019 CLINICAL HISTORY: evaluate liver and gallbladder, nausea, fatigue. Nausea. NPO. EXAM MEASUREMENTS: Liver Length: 17.5 cm Gallbladder Wall: 0.2 cm CBD: 0.4 cm Right Kidney: 17.5 x 4.6 x 3.3 cm Pancreas: Normal body. Head and tail obscured by overlying bowel gas. Liver: Normal. Gallbladder: Normal. Casting And Pasting Supervisor reports negative sonographic Moncada sign. CBD: Normal. Right Kidney: Normal. IMPRESSION: No acute abdominal process to explain patient's nausea. No acute cholecystitis.
[2020-09-07] MEDS ORDERED: ACETAMINOPHEN TAB 325 MG TAB PO PRN (20:26)
[2020-09-07] MEDS ORDERED: METOPROLOL TARTRATE 25 MG TAB PO SCH (21:00)
[2020-09-07] MEDS ORDERED: amLODIPine 5 MG TAB PO SCH (21:00)
--- NOTE | 2020-09-07 22:11 | P.HPIM ---
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 Patient is having pain mainly in the epigastric and across the upper right-sided abdominal and towards the back. Associated with nausea and left arm weakness and occasional discomfort in the back. No associated shortness of breath. Patient did have nausea and diaphoresis yesterday. Patient states that sometimes she feels like flushing which happen when she was started having menopause and of was on OCPs for about 1 year and were discontinued. Patient states that she has been having hot flashes more frequently recently. Blood pressure is elevated in the 170s on admission. Recently her blood pressure medications were titrated by her physician. Patient does have history of hypothyroidism/Blu's thyroiditis. Patient followed up with impregnating helper and had ultrasound of the thyroid and FNA C was done which was negative as per patient. Patient states that her blood pressure is not well controlled and is on follow- up with cardiology in the clinic. Chest x-ray showed no acute cardiopulmonary process EKG showed sinus tachycardia. Laboratory data showed WBC 11.4, hemoglobin 15.9 and MCV 91.6 D-dimer is 0.19 Sodium 139, potassium 4.3, chloride 103, BUN 16 and creatinine 0.87 Calcium 10.4, albumin 5.1 and total protein 8.9 Lipase 107, AST 34 and ALT 41 and alk phos 124 Troponin x3 -. Review of Systems Constitutional: Patient denies any fever or chills . generalized weakness. no weight loss. Abdomen: Patient denied nausea vomiting and diarrhea and RU Q abdominal pain. Cardiovascular: Patient denies any chest pain or short of breath no palpitations. Respiratory: patient denied any cough or sputum production. No shortness of breath Neurologic: Patient denied any numbness or tingling headache. Musculoskeletal: Patient denies any complaints of joint swelling or deformity. Skin: Negative Psychiatric: Negative Endocrine: No heat or cold intolerance. No recent weight gain. Genitourinary: No dysuria or hematuria. All other 14 point ROS negative except the above Past Medical History Past Medical History: Hyperlipidemia, Hypertension, Thyroid Disorder Additional Past Medical History / Comment(s): Hypothyroid, UTIs, anemia before hysterectomy. History of Any Multi-Drug Resistant Organisms: None Reported Past Surgical History: Section, Hysterectomy, Uterine Ablation Additional Past Surgical History / Comment(s): CSection x3, abdominoplasty Past Anesthesia/Blood Transfusion Reactions: No Reported Reaction Past Psychological History: Anxiety Additional Psychological History / Comment(s): Pt resides with her spouse. She is independent. Smoking Status: Never smoker Past Alcohol Use History: Occasional Past Drug Use History: None Reported - Past Family History Mother Family Medical History: AFIB, Cancer Additional Family Medical History / Comment(s): Breast cancer in her 80s. Hypokalemia. Father Family Medical History: CVA/TIA, Myocardial Infarction ([place]) Additional Family Medical History / Comment(s): Father had his first [place] in his 50s and his second HI in his early 60s. He had 4 vessel CABG Brother(s) Additional Family Medical History / Comment(s): Heart disease. Medications and Allergies Home Medications Medication Instructions Recorded Confirmed Type amLODIPine BESYLATE 5 mg PO HS 01/13/19 09/07/20 History Levothyroxine Sodium [Synthroid] 50 mcg PO DAILY 04/25/19 09/07/20 History Metoprolol Tartrate [Lopressor] 50 mg PO DAILY 04/25/19 09/07/20 History Ascorbic Acid [Vitamin C] 1,000 mg PO DAILY 09/07/20 09/07/20 History Cholecalciferol [Vitamin D3 (25 1,000 unit PO DAILY 09/07/20 09/07/20 History Mcg = 1000 Iu)] Cyanocobalamin (Vitamin B-12) 5,000 mcg PO DAILY 09/07/20 09/07/20 History [Vitamin B-12] Elderberry Fruit and Flower [Black 1 cap PO DAILY 09/07/20 09/07/20 History Elderberry 575 mg Cap] Losartan Potassium 100 mg PO DAILY 09/07/20 09/07/20 History Metoprolol Tartrate [Lopressor] 25 mg PO HS 09/07/20 09/07/20 History Rosuvastatin Calcium 5 mg PO HS 09/07/20 09/07/20 History Zinc 50 mg PO DAILY 09/07/20 09/07/20 History Allergies Allergy/AdvReac Type Severity Reaction Status Date / Time nitroglycerin AdvReac Unknown Verified 09/07/20 09:56 Physical Exam Vitals: Vital Signs Temp Pulse Pulse Resp BP BP Pulse Ox 09/07/20 11:16 97.9 F 70 14 161/76 99 09/07/20 09:27 100 18 141/87 100 09/07/20 08:31 97.7 F 98 18 172/79 100 Intake and Output 09/06/20 09/07/20 09/07/20 22:59 06:59 14:59 Other: Weight 74.843 kg PHYSICAL EXAMINATION: Patient is lying in the bed comfortably, no acute distress, awake alert and oriented.. HEENT: Normocephalic. Neck is supple. Pupils reactive. Nostrils clear. Oral cavity is moist. Ears reveal no drainage. Neck reveals no JVD, carotid bruits, or thyromegaly. CHEST EXAMINATION: Trachea is central. Symmetrical expansion. Lung leija clear to auscultation and percussion. CARDIAC: Normal S1, S2 with no gallops. No murmurs ABDOMEN: Soft. Bowel sounds normal. No organomegaly. No abdominal bruits. Extremities: reveal no edema. No clubbing or cyanosis Neurologically awake, alert, oriented x3 with well-coordinated movements. No focal deficits noted Skin: No rash or skin lesions. Psychiatric: Coperative. Nonsuicidal Musculoskeletal: No joint swelling or deformity. Normal range of motion. Results CBC & Chem 7: 09/07/20 09:09 09/07/20 09:09 Labs: Abnormal Lab Results - Last 24 Hours (Table) 09/07/20 09/07/20 Range/Units 09:09 09:09 WBC 11.4 H (3.8-10.6) k/uL Hct 48.0 H (34.0-46.0) % Neutrophils # 7.8 H (1.3-7.7) k/uL Glucose 159 H (74-99) mg/dL Calcium 10.4 H (8.4-10.2) mg/dL ALT 41 H (4-34) U/L Total Protein 8.9 H (6.3-8.2) g/dL Albumin 5.1 H (3.5-5.0) g/dL Thrombosis Risk Factor Assmnt - DVT/VTE Prophylaxis DVT/VTE Prophylaxis: Pharmacologic Prophylaxis ordered - Choose All That Apply Any of the Below Risk Factors Present?: Yes Each Factor Represents 1 point: Age 41-60 years, Obesity (BMI >25) Other Risk Factors: No Other congenital or acquired thrombophilia - If yes, enter type in comment: No Thrombosis Risk Factor Assessment Total Risk Factor Score: 2 Thrombosis Risk Factor Assessment Level: Low Risk Assessment and Plan Assessment: Atypical chest pain ruled out ACS. Uncontrolled hypertension Abdominal pain mainly in the epigastric and right upper quadrant radiating to the back rule out cholecystitis and gallstones. Ultrasound of the abdomen was ordered. Hypothyroidism History of thyroid nodule Mild hypercalcemia Elevated total protein and albumin levels Anxiety Hyperlipidemia DVT prophylaxis with heparin subcu Plan: Patient will be continued on telemetry monitoring. Serial troponin x3 -. Patient was started back on metoprolol, losartan and amlodipine and titrate blood pressure medications as needed. Cardiology is planning for stress test tomorrow. will check TSH, PTH and CPK levels. Follow-up CBC and CMP tomorrow. Ultrasound of the abdominal was ordered and further recommendations based on the clinical course. Discussed with the patient and her at bedside in detail. Time with Patient: Greater than 30
[2020-09-08] MEDS: HEPARIN SODIUM,PORCINE 5,000 UNIT/ML 1 ML VIAL SQ SCH ×2 (01:10→08:29)
[2020-09-08 05:18] LABS: Basophils # (A) 0.1 k/uL (0-0.2); Basophils % (A) 1 %; Eosinophils # (A) 0.1 k/uL (0-0.7); Eosinophils % (A) 2 %; HGB 14.7 gm/dL (11.4-16.0); Lymphocytes # (A) 2.8 k/uL (1.0-4.8); Lymphocytes % (A) 32 %; MCH 29.7 pg (25.0-35.0); MCV 92.8 fL (80.0-100.0); Mean Platelet Volume 7.3; Monocytes # (A) 0.5 k/uL (0-1.0); Monocytes % (A) 6 %; Neutrophils # (A) 5.1 k/uL (1.3-7.7); Neutrophils % (A) 59 %; Platelet Count 350 k/uL (150-450); RBC 4.95 m/uL (3.80-5.40); RDW 12.1 % (11.5-15.5); WBC 8.7 k/uL (3.8-10.6)
[2020-09-08 05:43] LABS: Albumin 4.3 g/dL (3.5-5.0); Calcium 9.8 mg/dL (8.4-10.2); Potassium 5.1 mmol/L (3.5-5.1); Total Bilirubin 0.9 mg/dL (0.2-1.3); Total Protein 7.6 g/dL (6.3-8.2)
[2020-09-08 07:50] VITALS: BP 142/78; PULSE 82; RESP 16; TEMP 98
[2020-09-08] MEDS ORDERED: ASPIRIN 325 MG TAB PO SCH (09:00)
[2020-09-08] MEDS ORDERED: METOPROLOL TARTRATE 50 MG TAB PO SCH (09:00)
[2020-09-08] MEDS ORDERED: LOSARTAN 50 MG TAB PO SCH (09:00)
[2020-09-08] MEDS ORDERED: LEVOTHYROXINE 50 MCG TAB PO SCH (09:00)
[2020-09-08] MEDS ORDERED: ASPIRIN 81 MG PO SCH (09:00)
--- NOTE | 2020-09-08 10:00 | ECHOF ---
Referral Reason:chest discomfort MEASUREMENTS -------- HEIGHT: 160.0 cm WEIGHT: 74.8 kg BP: RVIDd: 2.8 cm (< 3.3) IVSd: 1.0 cm (0.6 - 1.1) LVIDd: 4.6 cm (3.9 - 5.3) LVPWd: 1.0 cm (0.6 - 1.1) IVSs: 1.6 cm LVIDs: 2.4 cm LVPWs: 1.5 cm LA Diam: 2.7 cm (2.7 - 3.8) Ao Diam: 2.8 cm (2.0 - 3.7) AV Cusp: 1.8 cm (1.5 - 2.6) MV EXCURSION: 15.792 mm (> 18.000) MV EF SLOPE: 62 mm/s (70 - 150) EPSS: 0.2 cm MV E [facility]: 0.72 m/s MV DecT: 339 ms MV A [facility]: 0.81 m/s MV E/A Ratio: 0.89 RAP: 5.00 mmHg RVSP: 32.30 mmHg FINDINGS -------- Sinus rhythm. This was a technically good study. The left ventricular size is normal. Left ventricular wall thickness is normal. Overall left vent ricular systolic function is normal with, an EF between 60 - 65 %. The right ventricle is normal in size. The left atrium is normal in size. The right atrium is normal in size. Interatrial and interventricular septum intact. The aortic valve is trileaflet and appears structurally normal. There is trace mitral regurgitation. Mild tricuspid regurgitation present. Right ventricular systolic pressure is normal at < 35 mmHg. There is no pulmonic regurgitation present. The aortic root size is normal. Normal inferior vena cava with normal inspiratory collapse consistent with estimated right atrial pre ssure of 5 mmHg. There is no pericardial effusion. CONCLUSIONS -------- 1. The left ventricular size is normal. 2. Left ventricular wall thickness is normal. 3. Overall left ventricular systolic function is normal with, an EF between 60 - 65 %. 4. The aortic valve is trileaflet and appears structurally normal. 5. There is trace mitral regurgitation. 6. Mild tricuspid regurgitation present. 7. There is no pericardial effusion. DATA ENTRY MACHINE OPERATOR: Stacie Dover RDCS
--- NOTE | 2020-09-08 12:17 | P.STRESS ---
- Stress Test Note Stress Test Results/Findings: Exam Performed: NM stress lexiscan cardiolite Exam Date: 09/08/20 Reason for Exam: Chest Pain Height: 5 ft 3 in Weight: 74.84 kg Protocol: Lexiscan Stage: NA Duration of Exercise: NA Resting Heart Rate: 74 Resting Blood Pressure: 136/71 Maximum Achieved Heart Rate: 102 Maximum Achieved Blood Pressure: 143/75 85% PMHR: 137 100% PMHR: 161 METS: NA Technologist Comment: Stress Test Results/Findings: This is a 59-year-old female with history of hypertension, hypercholesterolemia, family history of ischemic heart disease being evaluated for chest pain. Stress data: Baseline EKG showed sinus rhythm with normal KS and QRS duration. Blood pressure at rest is 136/71 with pulse rate of 74. A standard dose of Lexiscan was infused. EKGs did not reveal any acute changes. Final impression: #1. Negative legs can stress test #2. Report of nuclear images to be given by the radiologist.
--- NOTE | 2020-09-08 12:20 | NM ---
EXAMINATION TYPE: NM stress Lexiscan Cardiolite DATE OF EXAM: 09/08/2020 COMPARISON: NONE HISTORY: Transient hypertension, hypercholesteremia, and family history of heart attack presents with chest pain TECHNIQUE: After the intravenous administration of 9.9 mCi Tc 99m Sestamibi - Cardiolite resting SPE CT images acquired 60 minutes post injection. The patient received 0.4mg Lexiscan, 24.7 mCi Tc 99m Sestamibi - Stress images obtained [address] injection FINDINGS: Review of stress and rest SPECT images demonstrates no distinct perfusion abnormality. Gated analysi s shows normal wall motion with an estimated left ventricular ejection fraction of 50 %. IMPRESSION: No scintigraphic evidence for reversible ischemia.
--- NOTE | 2020-09-08 12:33 | EST ---
Stress Test Results/Findings: Exam Performed: NM stress lexiscan cardiolite Exam Date: 09/08/20 Reason for Exam: Chest Pain Height: 5 ft 3 in Weight: 74.84 kg Protocol: Lexiscan Stage: NA Duration of Exercise: NA Resting Heart Rate: 74 Resting Blood Pressure: 136/71 Maximum Achieved Heart Rate: 102 Maximum Achieved Blood Pressure: 143/75 85% PMHR: 137 100% PMHR: 161 METS: NA Technologist Comment: Stress Test Results/Findings: This is a 59-year-old female with history of hypertension, hypercholesterolemia, family history of ischemic heart disease being evaluated for chest pain. Stress data: Baseline EKG showed sinus rhythm with normal RI and QRS duration. Blood pressure at rest is 136/71 with pulse rate of 74. A standard dose of Lexiscan was infused. EKGs did not reveal any acute changes. Final impression: #1. Negative Sherry scan stress test #2. Report of nuclear images to be given by the radiologist. LIANE
--- NOTE | 2020-09-08 12:59 | P.PN ---
Subjective Progress Note Date: 09/08/20 CHIEF COMPLAINT: Chest pain HISTORY OF PRESENT ILLNESS: Patient examined this morning at the bedside. She denies chest pain or pressure. Denies shortness of breath. Vital signs are stable. Echocardiogram completed revealed ejection fraction between 60 and 65%, mild tricuspid regurgitation, and trace mitral regurgitation. PHYSICAL EXAM: VITAL SIGNS: Reviewed. GENERAL: Well-developed in no acute distress. HEENT: Head is normocephalic. Pupils are equal, round. Sclerae anicteric. Mucous membranes of the mouth are moist. Neck supple. No JVD or thyromegaly LUNGS: Respirations even and unlabored. Lungs essentially clear to auscultation bilaterally. HEART: Regular rate and rhythm. S1 and S2 heard. ABDOMEN: Soft. Nondistended. Nontender. EXTREMITIES: Normal range of motion. No clubbing or cyanosis. Peripheral pulses intact. No lower extremity edema NEUROLOGIC: Awake and alert. Oriented x 3. ASSESSMENT: Chest pain, troponin negative 3 Myalgia, may be secondary to Rosuvastatin prescribed on 09/01/2020 Hypertension Hyperlipidemia Hypothyroidism Anxiety PLAN: Patient underwent Lexiscan stress test today which was negative for reversible ischemia. Patient may be discharged home today from a cardiac perspective We will sign off. Please reconsult if needed Nurse practitioner note has been reviewed by physician. Signing provider agrees with the documented findings, assessment, and plan of care. Objective - Vital Signs Vital signs: Vital Signs Temp 98.0 F 09/08/20 07:49 Pulse 82 09/08/20 08:49 Resp 16 09/08/20 07:49 BP 142/78 09/08/20 07:49 Pulse Ox 99 09/08/20 07:49 Intake & Output 09/07/20 09/08/20 09/08/20 18:59 06:59 18:59 Intake Total 600 Balance 600 Weight 74.843 kg 74.84 kg Intake: Other 600 Other: # Voids 1 1 - Labs CBC & Chem 7: 09/08/20 04:39 09/08/20 04:39 Labs: Abnormal Lab Results - Last 24 Hours (Table) 09/08/20 Range/Units 04:39 Glucose 120 H (74-99) mg/dL ALT 36 H (4-34) U/L Triglycerides 164 H (<150) mg/dL Cholesterol 212 H (<200) mg/dL LDL Cholesterol, Calc 134 H (0-99) mg/dL
== END 2020-09-08 14:18 | disposition home or self-care (01) ==
LOC: EC 08:26 → 1SOBS 10:33
PROVIDERS: ADMIT Internal Medicine; ATTEND Internal Medicine
DX: R07.89 Other chest pain (principal); E06.3 Autoimmune thyroiditis; M79.10 Myalgia, unspecified site; T46.6X5A Adverse effect of antihyperlipidemic and antiarteriosclerotic drugs, initial encounter; E83.52 Hypercalcemia; E78.5 Hyperlipidemia, unspecified; F41.0 Panic disorder [episodic paroxysmal anxiety]; I10 Essential (primary) hypertension; Z79.890 Hormone replacement therapy; Z79.899 Other long term (current) drug therapy; Z80.3 Family history of malignant neoplasm of breast; Z82.3 Family history of stroke; Z82.49 Family history of ischemic heart disease and other diseases of the circulatory system
CPT/HCPCS: 93005 ×2; 99285; 36415; 93017; 93306; 85379; 80061; 80053 ×2; 84443; 82150; 82550; 83690; 83735; 84484; 85025 ×2; 85610; 85730; 83970; 71046; 76705; 78452; G0378 ×2; A9500; J2785

== ENCOUNTER → 2021-07-05 | Outpatient (CLI) | payer BC ==
--- NOTE | 2021-07-09 12:10 | MM ---
Reason for exam: screening (asymptomatic). Last mammogram was performed 1 year and 1 month ago. History: Patient is postmenopausal. Family history of breast cancer in maternal aunt at age 79 and breast cancer in mother at age 80. Took hormonal contraceptives beginning at age 45. Took progesterone for 1 year. Took unspecified hormones for 15 years beginning at age 30. Physical Findings: A clinical breast exam by your physician is recommended on an annual basis and results should be correlated with mammographic findings. MG 3D Screening Mammo W/Cad Bilateral CC and MLO view(s) were taken. Prior study comparison: June 15, 2020, bilateral MG 3d screening mammo w/cad. January 13, 2019, bilateral MG screening mammo w CAD. January 07, 2018, bilateral MG screening mammo w CAD. December 18, 2016, bilateral MG screening mammo w CAD. There are scattered fibroglandular densities. Global asymmetry right upper outer quadrant is unchanged. No significant changes when compared with prior studies. ASSESSMENT: Benign, BI-RAD 2 RECOMMENDATION: Routine screening mammogram of both breasts in 1 year.
== END | disposition home or self-care (01) ==
LOC: RADMAMWWP 09:16
PROVIDERS: ATTEND Family Medicine
DX: Z12.31 Encounter for screening mammogram for malignant neoplasm of breast (principal); Z78.0 Asymptomatic menopausal state; Z79.3 Long term (current) use of hormonal contraceptives; Z80.3 Family history of malignant neoplasm of breast
CPT/HCPCS: 77063; 77067

== ENCOUNTER → 2021-12-10 | Outpatient (CLI) | payer BC ==
--- NOTE | 2021-12-10 10:33 | US ---
EXAMINATION TYPE: US abdomen limited DATE OF EXAM: 12/10/2021 COMPARISON: US Abdomen limited 09/07/2020 CLINICAL HISTORY: 61-year-old female R10.11 Right Upper Quadrant Pain. RUQ pain and back pain for man y years per patient TECHNIQUE: Multiple sonographic images of the right upper quadrant are obtained. FINDINGS: EXAM MEASUREMENTS: Liver Length: 15.7 cm Gallbladder Wall: 0.24 cm CBD: 0.42 cm Right Kidney: 10.2 x 3.6 x 4.7 cm Pancreas: Only some portions of the pancreatic head and body are visualized. Suboptimal visualizatio n of the pancreatic tail due to shadowing from bowel gas. Liver: Appears wnl Gallbladder: Appears wnl Evidence for sonographic Moncada's sign: No CBD: wnl Right Kidney: No hydronephrosis. IMPRESSION: Suboptimal visualization of the pancreas. Otherwise, unremarkable sonographic examination of the righ t upper quadrant.
== END | disposition home or self-care (01) ==
LOC: RADUSWWP 08:58
PROVIDERS: ATTEND Family Medicine
DX: R10.11 Right upper quadrant pain (principal)
CPT/HCPCS: 76705

== ENCOUNTER → 2022-02-07 | Outpatient (CLI) | payer BC ==
--- NOTE | 2022-02-07 14:12 | NM ---
EXAMINATION TYPE: NM hepatobiliary w CCK DATE OF EXAM: 02/07/2022 COMPARISON: NONE HISTORY: Right upper quadrant pain TECHNIQUE: After the intravenous administration of 4.9 mCi Tc 99m Mebrofenin hepatobiliary scintigrap hy is performed. Immediate images post injection. FINDINGS: There is satisfactory initial accumulation of tracer by the liver. The gallbladder is visualized wit hin 12 minutes. The small bowel activity is noted within 105 minutes. At one hour CCK was administe red, patient was injected with 1.44 mcg of Kinevac, and gallbladder ejection fraction is calculated a t 98 %, above the upper limit of the normal range. Therefore there is no scintigraphic evidence of c ystic or common bile duct obstruction to suggest acute cholecystitis. IMPRESSION: Findings could be indicative of hyper dynamic gallbladder
== END | disposition home or self-care (01) ==
LOC: RADNMMAIN 07:00
PROVIDERS: ATTEND Surgery
DX: R10.11 Right upper quadrant pain (principal)
CPT/HCPCS: 78227; A9537; J2805

== ENCOUNTER 2022-03-29 11:35 | Day surgery (SDC) | payer BC ==
[2022-03-27 15:47] VITALS: BMI 28.3
[~2022-03-29 11:35] MED LIST: ACETAMINOPHEN TAB 500 MG TAB PO PRN; DEXAMETHASONE SOD PHOSPHATE 4 MG/ML 1 ML VIAL IV ONE; HEPARIN SODIUM,PORCINE/PF 5,000 UNIT/0.5 ML SYRINGE SQ PRN; LACTATED RINGERS 1,000 ML IV SCH; MIDAZOLAM 2 MG/2 ML VIAL IV PRN; ONDANSETRON 4 MG/2 ML VIAL IVP ONE; SCOPOLAMINE 1 MG/72 HR PATCH TRANSDERM ONE
[2022-03-29] MEDS ORDERED: LIDOCAINE 1% (10MG/ML) FOR IV START INTRADERMA ONE (12:19)
--- NOTE | 2022-03-29 12:46 | P.GSHP ---
History of Present Illness H&P Date: 03/29/22 Chief Complaint: Biliary dyskinesia 61-year-old female here today for elective cholecystectomy. Patient with postprandial pain right upper quadrant with feelings of swelling there. Ultrasound was normal. HIDA scan showed an elevated ejection fraction. Past Medical History Past Medical History: GERD/Reflux, Hyperlipidemia, Hypertension, Osteoarthritis (OA), Thyroid Disorder Additional Past Medical History / Comment(s): hx anemia before hysterectomy. hx heart murmer at one time, "overactive gallbladder", hashimotos History of Any Multi-Drug Resistant Organisms: None Reported Past Surgical History: Section, Hysterectomy, Uterine Ablation Additional Past Surgical History / Comment(s): CSection x3, abdominoplasty Past Anesthesia/Blood Transfusion Reactions: No Reported Reaction Smoking Status: Never smoker - Past Family History Mother Family Medical History: Cancer Additional Family Medical History / Comment(s): . Father Family Medical History: CVA/TIA, Myocardial Infarction ([place]) Additional Family Medical History / Comment(s): Father had his first FL in his 50s and his second FL in his early 60s. Brother(s) Additional Family Medical History / Comment(s): Heart disease. Medications and Allergies Home Medications Medication Instructions Recorded Confirmed Type amLODIPine BESYLATE 5 mg PO HS 01/13/19 03/29/22 History Levothyroxine Sodium [Synthroid] 50 mcg PO DAILY 04/25/19 03/29/22 History Ascorbic Acid [Vitamin C] 1,000 mg PO DAILY 09/07/20 03/29/22 History Cholecalciferol [Vitamin D3 (25 1,000 unit PO DAILY 09/07/20 03/29/22 History Mcg = 1000 Iu)] Losartan Potassium 100 mg PO HS 09/07/20 03/29/22 History Metoprolol Tartrate [Lopressor] 50 mg PO QAM 09/07/20 03/29/22 History Acetaminophen [Tylenol Extra 500 mg PO DIRECTED PRN 03/27/22 03/29/22 History Strength] Pnv No.95/Ferrous Fum/Folic AC 1 each PO DAILY 03/27/22 03/29/22 History [ Multivitamin Tablet] Allergies Allergy/AdvReac Type Severity Reaction Status Date / Time adhesive tape Allergy skin peeled Verified 03/29/22 12:12 nitroglycerin AdvReac Severe "i nearly Verified 03/29/22 12:12 " Surgical - Exam Vital Signs Temp Pulse Resp BP Pulse Ox 98.2 F 76 16 148/80 98 03/29/22 12:05 03/29/22 12:05 03/29/22 12:05 03/29/22 12:05 03/29/22 12:05 Physical exam: General: Well-developed, well-nourished HEENT: Normocephalic, sclerae nonicteric Abdomen: Nontender, nondistended Extremities: No edema Neuro: Alert and oriented Assessment and Plan (1) Biliary dyskinesia Narrative/Plan: Will proceed with laparoscopic cholecystectomy, possible open cholecystectomy at this time. Risks of bleeding, infection, bile leak, bile duct injury, retained common bile duct stone, trocar injury, conversion to an open procedure, hernia, anesthesia related complications were reviewed. The patient understands and wishes to proceed. Current Visit: Yes Status: Acute Code(s): K82.8 - OTHER SPECIFIED DISEASES OF GALLBLADDER SNOMED Code(s): 280223827
[2022-03-29] MEDS ORDERED: MIDAZOLAM 2 MG/2 ML VIAL ONE (13:08)
[2022-03-29] MEDS ORDERED: LIDOCAINE 2% INJ 20 MG/ML (2 ML VIAL) ONE (13:08)
[2022-03-29] MEDS ORDERED: SUCCINYLCHOLINE CHLORIDE 100 MG/5 ML SYR IV ONE (13:08)
[2022-03-29] MEDS ORDERED: GLYCOPYRROLATE 0.2 MG/ML 2 ML VIAL ONE (13:08)
[2022-03-29] MEDS ORDERED: ROCURONIUM 10 MG/ML (5 ML VIAL) IV ONE (13:08)
[2022-03-29] MEDS ORDERED: LIDOCAINE 4% LTA KIT (4 ML) TOPICAL ONE (13:08)
[2022-03-29] MEDS ORDERED: HYDROmorphone (PF) 1 MG/ML ONE (13:08)
[2022-03-29] MEDS ORDERED: PROPOFOL 10 MG/ML 20 ML VIAL IV ONE (13:08)
[2022-03-29] MEDS ORDERED: KETOROLAC 15 MG/ML 1 ML VIAL ONE (13:08)
[2022-03-29] MEDS ORDERED: NEOSTIGMINE 1 MG/ML 10 ML VIAL ONE (13:08)
[2022-03-29] MEDS ORDERED: fentaNYL (PF) 50 MCG/ML 2 ML AMP ONE (13:08)
[2022-03-29] MEDS ORDERED: ePHEDrine 50 MG/ML 1 ML VIAL ONE (13:08)
[2022-03-29] MEDS ORDERED: BUPIVACAINE (PF) 0.25% 30 ML VIAL SQ ONE (13:31)
[2022-03-29] MEDS ORDERED: LACTATED RINGERS 1,000 ML IV ONE (14:09)
--- NOTE | 2022-03-29 14:11 | P.OP ---
Date of Procedure: 03/29/22 Procedure(s) Performed: PREOPERATIVE DIAGNOSIS: Biliary dyskinesia POSTOPERATIVE DIAGNOSIS: Same PROCEDURE: Laparoscopic cholecystectomy SURGEON: Rosalia EBL: Minimal see anesthesia record ANESTHESIA: Gen. COMPLICATIONS: None OPERATIVE PROCEDURE: The patient was brought and placed on the operating room table in the supine position. The patient was placed under general anesthesia at that time. The abdomen was prepped and draped in the usual sterile fashion. A small vertical infraumbilical incision was made. The fascia was grasped with the Juan Carlos forceps. The fascia was retracted anteriorly. The Veress needle was advanced into the peritoneal cavity. The saline drop test was normal. Insufflation took place up to 15 mmHg. A 5 mm optical trocar was advanced and the peritoneal cavity. 2 additional 5 mm trochars were placed in the right upper quadrant under direct visualization. A 12 mm trocar was advanced into the epigastric incision site. The gallbladder was retracted superiorly and laterally. The peritoneum overlying the infundibulum was bluntly dissected. The patient's cystic duct was visualized. The junction between the cystic duct common and hepatic duct was identified. The critical view of safety was achieved after blunt dissection. The cystic duct was then divided after p lacement of 3 12 mm clips on the patient's side and one on the specimen side. The cystic artery was identified and clipped as well. A small vessel was seen along the gallbladder fossa and clipped as well. The gallbladder was then removed from the liver bed using electrocautery. The gallbladder was then removed from the epigastric trocar site with an Endo Catch bag. The gallbladder fossa was irrigated with saline. There was no evidence of any bleeding or biliary drainage seen. The fascia at the 12 millimeter site was closed using a [place]-Allyssa 0 Vicryl stitch. The trochars were then removed. The skin at all 4 sites was closed using a 4-0 Monocryl stitch. Skin glue was utilized on the incision sites. At the end of this procedure the sponge and needle counts were correct. DISPOSITION: Stable to the recovery room
[2022-03-29] MEDS ORDERED: ACETAMINOPHEN TAB 325 MG TAB PO SCH (14:15)
[2022-03-29 14:37] VITALS: TEMP 97
[2022-03-29] MEDS: HYDROmorphone 0.5 MG/0.5 ML SYRINGE IVP PRN ×2 (14:44→14:58)
[2022-03-29] MEDS ORDERED: ONDANSETRON 4 MG/2 ML VIAL ONE (15:22)
[2022-03-29] MEDS ORDERED: ONDANSETRON 4 MG/2 ML VIAL IVP ONE ×2 (15:23→15:25)
[2022-03-29 16:31] VITALS: RESP 18
[2022-03-29] MEDS ORDERED: IBUPROFEN 600 MG TAB PO SCH (17:15)
[2022-03-29 17:32] VITALS: BP 103/62; PULSE 95
== END 2022-03-29 18:08 ==
LOC: OR 11:35
PROVIDERS: ATTEND Surgery
DX: K81.1 Chronic cholecystitis (principal); Z90.710 Acquired absence of both cervix and uterus; K21.9 Gastro-esophageal reflux disease without esophagitis; E78.5 Hyperlipidemia, unspecified; I10 Essential (primary) hypertension; F41.9 Anxiety disorder, unspecified; M19.90 Unspecified osteoarthritis, unspecified site; E06.3 Autoimmune thyroiditis; Z98.891 History of uterine scar from previous surgery; Z98.890 Other specified postprocedural states; Z83.3 Family history of diabetes mellitus; Z82.49 Family history of ischemic heart disease and other diseases of the circulatory system; Z80.3 Family history of malignant neoplasm of breast; Z79.890 Hormone replacement therapy; Z79.899 Other long term (current) drug therapy; Z88.8 Allergy status to other drugs, medicaments and biological substances
CPT/HCPCS: 47562; J2250; J1100; J2710; J0690; J2405; J3010; J1170 ×2; J1885; J0330; J2704; J1644; J2001; 88304

== ENCOUNTER → 2022-07-09 | Outpatient (CLI) | payer BC ==
--- NOTE | 2022-07-10 07:55 | MM ---
Reason for Exam: Screening (asymptomatic). Last screening mammogram was performed 12 month(s) ago. Patient History: Menarche at age 11. First Full-Term at age 25. Left ovary removed at age 53. Right ovary removed at age 53. Hysterectomy at age 53. Postmenopausal. Patient has history of breast feeding. Patient used Progesterone for 1 year. Hormonal Contraceptives, from age 45 until age 47. Unspecified Hormone for 15 years from age 30 until age 45. Maternal aunt had breast cancer, age 79. Mother had breast cancer, age 80. Risk Values: Huong 5 year model risk: 3.2%. NCI Lifetime model risk: 14.8%. Prior Study Comparison: 01/13/2019 Bilateral Screening Mammogram, [facility]. 06/15/2020 Bilateral Screening Mammogram, [facility]. 07/05/2021 Bilateral Screening Mammogram, [facility]. Tissue Density: The breast tissue is heterogeneously dense. This may lower the sensitivity of mammography. Findings: Analyzed By CAD. There is no suspicious group of microcalcifications or new suspicious mass in either breast. Overall Assessment: Negative, BI-RAD 1 Management: Screening Mammogram of both breasts in 1 year. A clinical breast exam by your physician is recommended on an annual basis and results should be correlated with mammographic findings. Electronically signed and approved by: Elliott Rivas M.D. Radiologis
== END | disposition home or self-care (01) ==
LOC: RADMAMWWP 11:19
PROVIDERS: ATTEND Family Medicine
DX: Z12.31 Encounter for screening mammogram for malignant neoplasm of breast (principal); Z78.0 Asymptomatic menopausal state; Z80.3 Family history of malignant neoplasm of breast
CPT/HCPCS: 77063; 77067

== ENCOUNTER → 2023-07-28 | Outpatient (CLI) | payer SELFPAY ==
--- NOTE | 2023-07-29 14:38 | MM ---
Reason for Exam: Screening (asymptomatic). Last mammogram was performed 1 year(s) and 1 month(s) ago. Patient History: Menarche at age 11. First Full-Term at age 25. Left ovary removed at age 53. Right ovary removed at age 53. Hysterectomy at age 53. Postmenopausal. Patient has history of breast feeding. Patient used Progesterone for 1 year. Hormonal Contraceptives, from age 45 until age 47. Maternal aunt had breast cancer, age 79. Mother had breast cancer, age 80. Risk Values: Huong 5 year model risk: 3.3%. NCI Lifetime model risk: 14.3%. Prior Study Comparison: 06/15/2020 Bilateral Screening Mammogram, [facility]. 07/05/2021 Bilateral Screening Mammogram, [facility]. 07/09/2022 Bilateral MG 3D screening mammo w/cad, [facility]. Tissue Density: There are scattered fibroglandular densities. Findings: Analyzed By CAD. Head and appears symmetrical and stable. Scattered benign-appearing calcifications are present. There is a benign-appearing small nodule in the 3:00 middle position left breast No suspicious groups of microcalcifications, spiculated or lobular masses, architectural distortion or other secondary signs of malignancy are mammographically apparent. Overall Assessment: Benign, BI-RAD 2 Management: Screening Mammogram of both breasts in 1 year. A negative mammogram report should not preclude additional follow up of suspicious palpable abnormalities. Patient should continue monthly self breast exam. A clinical breast exam by your physician is recommended on an annual basis and results should be correlated with mammographic findings. Electronically signed and approved by: Sacha Wild D.O. Radiologis
== END | disposition home or self-care (01) ==
LOC: RADMAMWWP 14:01
PROVIDERS: ATTEND Family Medicine
DX: Z12.31 Encounter for screening mammogram for malignant neoplasm of breast (principal); Z78.0 Asymptomatic menopausal state; Z80.3 Family history of malignant neoplasm of breast
CPT/HCPCS: 77063; 77067

== ENCOUNTER → 2024-08-13 | Outpatient (CLI) | payer SELFPAY ==
--- NOTE | 2024-08-16 19:01 | MM ---
Reason for Exam: Screening (asymptomatic). Last mammogram was performed 1 year(s) and 1 month(s) ago. Patient History: Menarche at age 11. First Full-Term at age 25. Left ovary removed at age 53. Right ovary removed at age 53. Hysterectomy at age 53. Postmenopausal. Patient has history of breast feeding. Patient used Progesterone for 1 year. Hormonal Contraceptives, from age 45 until age 47. Maternal aunt had breast cancer, age 79. Mother had breast cancer, age 80. Risk Values: Huong 5 year model risk: 3.4%. NCI Lifetime model risk: 13.9%. Prior Study Comparison: 07/05/2021 Bilateral Screening Mammogram, [facility]. 07/09/2022 Bilateral MG 3D screening mammo w/cad, [facility]. 07/28/2023 Bilateral MG 3D screening mammo w/cad, [facility]. Tissue Density: There are scattered areas of fibroglandular density. Findings: Analyzed By CAD. Unchanged focal asymmetry right upper outer quadrant. Scattered benign round and punctate calcifications are also unchanged. There is no suspicious group of microcalcifications or new suspicious mass in either breast. Overall Assessment: Benign, BI-RAD 2 Management: Screening Mammogram of both breasts in 1 year. See note below in regards to the patient's increased 5 year Huong score. Patient should continue monthly self-breast exams. A clinical breast exam by your physician is recommended on an annual basis. This exam should not preclude additional follow-up of suspicious palpable abnormalities. Note on Huong scores and lifetime risk: 1. A Huong score greater than 3% is considered moderate risk. If this is the case, consider specialist referral to assess eligibility for a risk reducing agent. 2. If overall lifetime risk for the development of breast cancer is 20% or higher, the patient may qualify for future screening with alternating mammogram and breast MRI. [facility], , 08/16/2024 6:59 PM. Electronically signed and approved by: Miladis Zhong M.D. Radiologist
== END | disposition home or self-care (01) ==
LOC: RADMAMWWP 14:54
PROVIDERS: ATTEND Family Medicine
DX: Z12.31 Encounter for screening mammogram for malignant neoplasm of breast
CPT/HCPCS: 77067

== ENCOUNTER → 2024-12-14 | Outpatient (CLI) | payer SELFPAY ==
[2024-12-14 20:01] LABS: Chol/HDL Ratio 2.79 Ratio; T4, Free (Free Thyroxine) 1.19 ng/dL (0.80-1.80)
== END | disposition home or self-care (01) ==
LOC: LABWHC1 08:19
PROVIDERS: ATTEND Internal Medicine
DX: I10 Essential (primary) hypertension (principal); E55.9 Vitamin D deficiency, unspecified; E78.5 Hyperlipidemia, unspecified; E03.9 Hypothyroidism, unspecified
CPT/HCPCS: 36415; 80061; 82306; 84439; 84443

== ENCOUNTER → 2024-12-14 | Outpatient (CLI) | payer SELFPAY ==
--- NOTE | 2024-12-14 09:11 | US ---
EXAMINATION TYPE: US abdomen complete DATE OF EXAM: 12/14/2024 COMPARISON: US CLINICAL INDICATION: Female, 64 years old with history of R10.10 UPPER ABD PAIN; Pt states "pulling" sensation within ABD TECHNIQUE: Grayscale and color Doppler imaging of the abdomen was performed. FINDINGS: EXAM MEASUREMENTS: Liver Length: 16.1 cm Gallbladder Wall: Surgically absent CBD: 0.6 cm, color Doppler imaging was utilized to isolate the common bile duct for measurement. Spleen: 9.3 cm Right Kidney: 10.9 x 3.5 x 4.6 cm Left Kidney: 10.3 x 5.2 x 4.7 cm RN STAFF NOTES: Pancreas: wnl, tail obscured by overlying bowel gas Liver: wnl, no dilated ducts, masses or cysts. Gallbladder: Surgically absent Evidence for sonographic Moncada's sign: No CBD: wnl Spleen: wnl Right Kidney: wnl, No hydronephrosis, calculi or masses seen Left Kidney: wnl, No hydronephrosis, calculi or masses seen Upper IVC: wnl Abd Aorta: wnl The liver is homogenous. The intrahepatic portion of the IVC and proximal abdominal aorta are within normal limits. There is no evidence of cholelithiasis. Common bile duct is unremarkable. The visu alized portions of the pancreas are homogenous. The spleen is unremarkable. Kidneys are symmetric a nd free of hydronephrosis. No renal lesions are seen. IMPRESSION: No evidence for acute process. [facility], , 12/14/2024 9:09 AM
== END | disposition home or self-care (01) ==
LOC: RADUSWWP 08:22
PROVIDERS: ATTEND Family Medicine
DX: R10.10 Upper abdominal pain, unspecified (principal)
CPT/HCPCS: 76700